=== PATIENT | female | born 1965 | race Caucasian/White ===

== ENCOUNTER 2022-01-08 11:31 | Emergency (ER) | payer OTHER ==
[~2022-01-08] VITALS: Ht 157.5 cm; Wt 63.5 kg
--- NOTE | 2022-01-08 11:31 | NUR ---
MONIKA WHEELCHAIR FROM [facility] LOBBY
[2022-01-08 11:34] VITALS: BP 169/90
[2022-01-08] MEDS ORDERED: ALBUTEROL SULFATE/IPRATROPIU 3 ML SOL IH ONE (11:45)
[2022-01-08] MEDS ORDERED: ALBUTEROL 0.083% 2.5 MG/3 ML NEBU INH ONE (11:45)
[2022-01-08] MEDS ORDERED: predniSONE 20 MG TAB PO ONE (11:45)
--- NOTE | 2022-01-08 11:45 | NUR ---
Pt brought to bed 12 with SOB and active anxiety attack. RT called to bedside and pt placed on monitor at this time. Pt AOX4, GCS15, speaking in full sentences. Hx of asthma.
--- NOTE | 2022-01-08 12:30 | NUR ---
56 y/o female bib for anxiety attack and asthma exacerbation. RT called to bedside and assessed. Pt able to soeak in full sentences and remains AOX4, able to make needs known and GCS15. Pt endorses severe anxiety and has not been taking her asthma medications PmHx: asthma/Anxiety
[2022-01-08] MEDS ORDERED: ALBU0.0912 INH (14:04)
[2022-01-08] MEDS ORDERED: PRED20TA5 PO (14:04)
[2022-01-08 14:07] VITALS: BP 145/75
--- NOTE | 2022-01-08 14:07 | NUR ---
Patient discharged with v/s stable. Written and verbal after care instructions given and explained with teachback. Patient alert, oriented and verbalized understanding of instructions. Ambulatory with steady gait. All questions addressed prior to discharge. ID band removed. Patient advised to follow up with PMD. Rx of prednisone/albuterol given. Patient educated on indication of medication including possible reaction and side effects. Opportunity to ask questions provided and answered.
== END 2022-01-08 14:07 | disposition home or self-care (01) ==
LOC: MED 11:31
DX: J45.901 Unspecified asthma with (acute) exacerbation (principal); F17.200 Nicotine dependence, unspecified, uncomplicated
CPT/HCPCS: 94640; 94760; 99283; J7512; J7613

== ENCOUNTER 2022-04-15 15:04 | Emergency (ER) | payer OTHER ==
[~2022-04-15] VITALS: Ht 162.6 cm; Wt 74.4 kg
[~2022-04-15 15:04] MED LIST: ALBU0.0912 INH; PRED20TA5 PO
[2022-04-15 15:11] VITALS: BP 130/57
--- NOTE | 2022-04-15 15:15 | NUR ---
PT W/C ASSISTED TO BED 4.
[2022-04-15] MEDS ORDERED: ALBUTEROL SULFATE/IPRATROPIU 3 ML SOL IH ONE (15:20)
[2022-04-15] MEDS ORDERED: predniSONE 20 MG TAB PO ONE (15:20)
--- NOTE | 2022-04-15 15:23 | NUR ---
at bs, pt sob, o2 sat 91% ra, awaits rt
[2022-04-15] MEDS ORDERED: PRED20TA5 PO (16:26)
[2022-04-15] MEDS ORDERED: ALBU0.0912 IH (16:26)
--- NOTE | 2022-04-15 16:30 | NUR ---
feels better about sob, o2 sat 97% ra, sr up times 2
[2022-04-15] MEDS ORDERED: NAPR-54 PO (16:33)
[2022-04-15 16:41] VITALS: BP 136/87
--- NOTE | 2022-04-15 16:43 | NUR ---
dPatient discharged with v/s stable. Written and verbal after care instructions given and explained. Patient verbalized understanding. Ambulatory with steady gait. All questions addressed prior to discharge. Advised to follow up with PMD.
== END 2022-04-15 16:43 | disposition home or self-care (01) ==
LOC: MED 15:04
DX: J45.901 Unspecified asthma with (acute) exacerbation (principal); J44.9 Chronic obstructive pulmonary disease, unspecified; Z88.8 Allergy status to other drugs, medicaments and biological substances
CPT/HCPCS: 71045; 94640; 99283; J7512; Q0092

== ENCOUNTER 2022-05-18 02:57 | Inpatient (IN) | payer OTHER ==
[~2022-05-18] VITALS: Ht 154.9 cm; Wt 74.8 kg
[2022-05-18] VITALS (11 sets, daily range): BP systolic 69–158; BP diastolic 45–107
[~2022-05-18 02:57] MED LIST changes: +ALBU0.0912 IH; +NAPR-54 PO
--- NOTE | 2022-05-18 03:03 | NUR ---
PT TAKEN TO BED 6
--- NOTE | 2022-05-18 03:05 | NUR ---
Dr. Guerra examining patient.
[2022-05-18] MEDS ORDERED: IPRATROPIUM 0.02% 0.5 MG/2.5 ML NEBU INH ONE (03:10)
[2022-05-18] MEDS ORDERED: methylPREDNISolone SS 125 MG in WATER STERILE 2 ML IV ONE ×2 (03:10→03:40)
[2022-05-18] MEDS ORDERED: ALBUTEROL 0.083% 2.5 MG/3 ML NEBU INH ONE ×2 (03:10→04:15)
--- NOTE | 2022-05-18 03:14 | NUR ---
Respiratory Therapist at bedside for respiratory intervention.
[2022-05-18] MEDS ORDERED: LORazepam 2 MG/ML VIAL IVP ONE (03:15)
[2022-05-18 03:24] LABS: BASOPHILS % (AUTO) 0.1 % (0.0-2.0); HEMATOCRIT 43.4 % (36-48); HEMOGLOBIN 14.7 g/dL (12.0-16.0); LYMPHOCYTES # (AUTO) 0.3 K/uL (2.5-16.5); LYMPHOCYTES % (AUTO) 2.8 % (20.5-51.1); MEAN CORPUSCULAR HEMOGLOBIN 34 pg (27-31); MEAN CORPUSCULAR HGB CONC 34 g/dL (33-37); MEAN CORPUSCULAR VOLUME 99.3 fL (80-94); MONOCYTES # (AUTO) 0.9 K/uL (0.8-1.0); MONOCYTES % (AUTO) 7.7 % (1.7-9.3); NEUTROPHILS # (AUTO) 10.4 K/uL (1.8-7.7); NEUTROPHILS % (AUTO) 89.4 % (42.2-75.2); PLATELET COUNT (AUTO) 205 K/uL (140-450); RED BLOOD CELL COUNT(AUTO) 4.37 MIL/uL (4.20-5.40); RED CELL DISTRIBUTION WIDTH 14.7 % (11.6-13.7); WHITE BLOOD COUNT (AUTO) 11.7 K/uL (4.8-10.8)
--- NOTE | 2022-05-18 03:30 | NUR ---
57 Y/O F presents with SOB and chest pressure. pt denies any pain at the moment. pt stated "i cant breathe" pt has a history of smoking. pt is A&Ox4, skin intact. pt stated she was seen at [facility] for the same thing xyesterday. PMH- allergies-azithromycin
[2022-05-18 03:41] LABS: ALBUMIN 3.8 g/dL (3.4-5.0); ANION GAP 10.5 (8-16); ASPARTATE AMINOTRANSFERASE 79 U/L (15-37); CARBON DIOXIDE 32.9 mmol/L (21-32); CHLORIDE 96 mmol/L (98-107); GFR ARICAN-AMERICAN 73 mL/min (>90); GLUCOSE 174 mg/dL (74-106); POTASSIUM 4.4 mmol/L (3.5-5.1); SODIUM SERUM 135 mmol/L (136-145); UREA NITROGEN, BLOOD 35 mg/dL (7-18)
[2022-05-18] MEDS ORDERED: methylPREDNISolone SS 125 MG in WATER STERILE 2 ML IM ONE (03:50)
[2022-05-18] MEDS ORDERED: WATER STERILE 10 ML MC ONE (03:57)
[2022-05-18] MEDS ORDERED: methylPREDNISolone SS 125 MG/2 ML VIAL ONE ×2 (03:57→18:23)
[2022-05-18] MEDS ORDERED: MORPHINE SULFATE 2 MG/ML SYR IVP PRN (06:05)
[2022-05-18] MEDS ORDERED: MAG SULF 2000 MG/WATER PREMIX 50 ML IV PRN (06:05)
[2022-05-18] MEDS ORDERED: ZOLPIDEM 10 MG TAB PO PRN (06:05)
[2022-05-18] MEDS ORDERED: ONDANSETRON 4 MG/2 ML VIAL IVP PRN (06:05)
[2022-05-18] MEDS ORDERED: DOCUSATE SODIUM 100 MG GELCAP PO PRN (06:05)
[2022-05-18] MEDS ORDERED: POTASSIUM CHLORIDE 10 MEQ TABER PO PRN (06:05)
[2022-05-18] MEDS ORDERED: ACETAMINOPHEN EXTRA STRENGTH 500 MG TAB PO STA (06:56)
--- NOTE | 2022-05-18 07:35 | NUR ---
PATIENT CURRENTLY TRANSFERRING TO [facility] TO ATTEMPT HHN THERAPY AT A LATER TIME
--- NOTE | 2022-05-18 07:36 | NUR ---
Pt report given to LANI MANDEL. Transfer of care at this time.
--- NOTE | 2022-05-18 07:48 | NUR ---
Patient will be admitted to care of MD JOHNSON. Admited to TELE. Will go to room 119A. Belongings list completed. Report to GILBERT STOREY .
--- NOTE | 2022-05-18 07:48 | NUR ---
The patient's care was reviewed and supervised by Marino Chino RN.
[2022-05-18] MEDS: ALBUTEROL 0.083% 2.5 MG/3 ML NEBU INH SCH ×5 (08:14→23:07)
[2022-05-18] MEDS: ACETAMINOPHEN 325 MG TAB PO PRN (08:39)
--- NOTE | 2022-05-18 09:07 | NUR ---
PATIENT HAS BEEN SCREENED AND CATEGORIZED MODERATE NUTRITION RISK. PATIENT WILL BE SEEN WITHIN 3-5 DAYS OF ADMISSION. REVIEWED BY EDELMIRA VELAZQUEZ RD
[2022-05-18] MEDS: LORazepam 2 MG/ML VIAL IVP PRN ×3 (09:26→20:24)
[2022-05-18] MEDS ORDERED: methylPREDNISolone SS 40 MG in WATER STERILE 1 ML IV SCH (13:00)
[2022-05-18] MEDS: methylPREDNISolone SS 40 MG/ML VIAL IVP SCH ×2 (13:06→20:24)
--- NOTE | 2022-05-18 14:15 | NUR ---
DUE TO INCREASED PULMONARY DISTRESS STAT ABG DRAWN AT THIS TIME BRENDI/CHARGE MST RN NOTIFIED
--- NOTE | 2022-05-18 14:30 | NUR ---
DR. TERRI MORALEZ NOTIFIED OF STAT ABG RESULTS VORBO: BIPAP TO MASK; ADVISED FOREMENTIONED MD OF PATIENT CONFUSION AND REFUSAL TO WEAR BIPAP TO MASK JETT/MST CHARGE NURSE NOTIFIED
--- NOTE | 2022-05-18 14:35 | NUR ---
PATIENT REFUSING BIPAP TO MASK AT THIS TIME JETT/[facility] HVAC TECHNICIAN NOTIFIED
[2022-05-18] MEDS ORDERED: HALOPERIDOL IM 5 MG/ML VIAL IM SCH (14:41)
[2022-05-18] MEDS ORDERED: HALOPERIDOL IM 5 MG/ML VIAL ONE (14:44)
--- NOTE | 2022-05-18 15:03 | NUR ---
PLACED ON A VAPOTHERM AT THIS TIME; SEDATION GIVEN BY RN DUE COMBATIVENESS; EXTERNAL AND INTERNAL SUCTION FOR COPIOUS FROTH YELLOW SECRETIONS
--- NOTE | 2022-05-18 15:17 | NUR ---
PATIENT BECAME EXTREMELY ANXIOUS SHORT OF BREATH WITH SOME DIFFICULTY BREATHING. MEDICATED WITH ATIVAN, RT AT BEDSIDE ATTEMPTED TO PLACE BIPAP ON PATIENT BUT SHE REFUSED AND BECAME COMBATIVE. CHARGE NURSE UPDATED MD ON PATIENT STATUS, ORDERS RECEIVED, PATIENT WILL BE TRANSFERRED TO ICU . PATIENT CURRENTLY PLACED ON HI FLOW AT 40LITERS, FIO2 50% TEMP 33. WILL CONTINUE TO MONITOR CLOSELY.
--- NOTE | 2022-05-18 15:57 | NUR ---
[facility] CALLED AT THIS TIME; Yunier CORNELL RCP AND Bob VILLAGOMEZ RCP ATTENDING
[2022-05-18] MEDS ORDERED: KETAMINE 500 MG/5 ML VIAL ONE (16:22)
[2022-05-18] MEDS ORDERED: DEXMEDETOMIDINE HCL 400 MCG in DEXTROSE 5% 96 ML IV PRN (16:40)
--- NOTE | 2022-05-18 16:59 | NUR ---
PT ARRIVED TO ICU BED 6 ON NONREBREATHER, PLACED ON BIPAP SHORTLY AFTER.
--- NOTE | 2022-05-18 17:02 | NUR ---
NOTIFIED MD DR. MORALEZ OF LABORED BREATHING ON BIPAP. UPDATED ON PT STATUS.
--- NOTE | 2022-05-18 17:45 | NUR ---
AT THE BEDSIDE AND ASSESSED THE PATIENT. PER DR. YU NO NEED FOR PATIENT TO BE INTUBATED AND WILL ORDER BREATHING TREATMENT. WILL CONTINUE TO MONITOR.
[2022-05-18] MEDS ORDERED: ALBUTEROL 0.083% 2.5 MG/3 ML NEBU INH SCH (17:50)
[2022-05-18] MEDS ORDERED: NOREPINEPHRINE 4 MG in DEXTROSE 5% 250 ML IV PRN (18:20)
[2022-05-18] MEDS ORDERED: methylPREDNISolone SS 125 MG/2 ML VIAL IVP ONE (18:25)
--- NOTE | 2022-05-18 19:29 | NUR ---
RECEIVED REPORT FROM AM SHIFT. PATIENT WAS SEEN AND ASSESSED. PATIENT IS ON SPONTANEOUS TIME MODE ON BiPAP. PATIENT IS ON BiPAP SETTINGS: IPAP 18, EPAP 7, BACK UP RR 16, FiO2 40%. SPO2 97%. NOTICED ADEQUATE BILATERAL CHEST RISE AND FALL. MACHINE PLUGGED IN RED OUTLET. BiPAP ALARMS SET APPROPRIATELY AND AUDIBLE TO ENVIRONMENT. AMBU BAG AT BEDSIDE. PATIENT IS IN NO RESPIRATORY DISTRESS AT THIS TIME. BILATERAL BREATH SOUNDS ON AUSCULTATION; UPPER LOBES: WHEEZING LOWER LOBES: WHEEZING HHN TX GIVEN ORDERED AND PATIENT TOLERATED TX WELL WITH NO ADVERSE REACTION. WILL CONTINUE TO MONITOR PATIENT.
--- NOTE | 2022-05-18 20:00 | NUR ---
RECEIVED PT ON BED ON BIPAP, DROWSY TO LETHARGIC, WITH OOACIONAL EPISODES OF AGITATION AND RESTLESSNESS. ASSESSMENT DONE. SAFETY AND FALL PRECAUTION MAINTAINED. REPOSITIONED COMFORTABLY, SUPPORTED WITH PILLOWS. KEPT CLEAN AND DRY. SR. CONT TO YADIEL,
--- NOTE | 2022-05-18 20:00 | NUR ---
PT STILL AGITATED, REMOVED BiPAP MASK OFF. PLACED BiPAP MASK BACK ON PT. PT TOLERATING WELL AT THIS TIME. RN AT BEDSIDE
--- NOTE | 2022-05-18 20:22 | NUR ---
CRITICAL ABG RESULTS WERE REPORTED TO DR. MORALEZ AND UPDATED ON PT CONDITION. INTUBATION ORDER OBTAINED. DR. YU (ED DOCTOR) WAS NOTIFIED AND AGREED TO INTUBATE PT.
[2022-05-18] MEDS ORDERED: KETAMINE 500 MG/5 ML VIAL IVP ONE (20:25)
[2022-05-18] MEDS ORDERED: SUCCINYLCHOLINE CHLORIDE 200 MG/10 ML VIAL IVP ONE (20:25)
--- NOTE | 2022-05-18 20:30 | NUR ---
DR YU AT BEDSIDE, PATIENT WAS SUCCESSFULLY INTUBATED AT 2036 WITH ETT SIZE 8.0 AND SECURED WITH BITTING BLOCK ANCHOR-FAST 24cm @GUM. BILATERAL BREATH SOUNDS ON AUSCULTATION. COLOR CHANGE IN COLORIMETRIC CO2. STAT X RAY ORDERED FOR OFFICIAL ETT PLACEMENT.
--- NOTE | 2022-05-18 20:30 | NUR ---
ABG DONE BY THE RT AND RESULT WAS SHOWN TO ER MD DR. SMALL, DECIDED TO INTUBATE THE PATIENT; DR. MORALEZ WAS ALSO INFORMED OF ABG RESULT, ORDERED TO INTUBATE THE PATIENT.
[2022-05-18] MEDS: PROPOFOL 1000 MG/100 ML PREMIX 100 ML IV PRN (20:35)
--- NOTE | 2022-05-18 20:37 | NUR ---
PATIENT WAS INTUBATED BY DR SMALL( )
[2022-05-18] MEDS ORDERED: VECURONIUM 20 MG in NACL 0.9% 100 ML IV PRN (20:45)
[2022-05-18] MEDS ORDERED: PROPOFOL 1000 MG/100 ML PREMIX 100 ML IV ONE (20:49)
[2022-05-18] MEDS ORDERED: fentaNYL citrate 0.05 MG/ML VIAL ONE (20:50)
[2022-05-18] MEDS ORDERED: VECURONIUM 10 MG VIAL IVP ONE (20:54)
--- NOTE | 2022-05-18 21:00 | NUR ---
NGT INSERTED TO LEFT NARES; LEIVA CATH INSERTED.
[2022-05-18] MEDS ORDERED: NOREPINEPHRINE 4 MG/4 ML VIAL IV ONE (21:33)
--- NOTE | 2022-05-18 21:45 | NUR ---
CENTRAL LINE TO LEFT SUBCLAVIAN WAS INSERTED BY THE ER , DR. SMALL AT BEDSIDE.
--- NOTE | 2022-05-18 22:00 | NUR ---
PT NOW INTUBATED, CXR DONE FOR PLACEMENT VERIFICATION. CENTRAL LINE INSERTED BY SAME MD TO LEFT SUBCLAVIAN 3 LUMEN. STARTED ON FENTANYL AND VECURONIUM DRIPS PER PROTOCOL. DREW SOFT WRIST RESTRAINTS IN PLACE. POST ABG DONE, RESULT REPORTED TO MD, FIO2 CHANGED TO 40%. CHARGE NURSE CALLED AND UPDATED PT'S SPOUSE JORDAN. SAFETY MEASURES OBSERVED. CONT TO MONITOR.
--- NOTE | 2022-05-18 22:03 | NUR ---
PATIENT'S JORDANMagdalena WELLSChau WAS UPDATED ON PATIENT' MEDICAL CONDITION.
--- NOTE | 2022-05-18 22:39 | NUR ---
REPORTED POST INTUBATION ABG RESULTS TO DR. MORALEZ. NO CHANGES AT THIS TIME. TITRATED FiO2. OBTAINED AN ORDER FOR AM ABG.
[2022-05-19] VITALS (26 sets, daily range): BP systolic 90–176; BP diastolic 53–83
[2022-05-19] MEDS ORDERED: VECURONIUM 10 MG VIAL IVP ONE ×2 (01:39→07:52)
[2022-05-19] MEDS: PROPOFOL 1000 MG/100 ML PREMIX 100 ML IV PRN ×5 (03:02→21:36)
[2022-05-19] MEDS: ALBUTEROL 0.083% 2.5 MG/3 ML NEBU INH SCH ×6 (03:52→22:45)
[2022-05-19] MEDS: methylPREDNISolone SS 40 MG/ML VIAL IVP SCH (05:45)
[2022-05-19 06:02] LABS: BASOPHILS % (AUTO) 0.5 % (0.0-2.0); HEMATOCRIT 37.9 % (36-48); HEMOGLOBIN 13.1 g/dL (12.0-16.0); LYMPHOCYTES # (AUTO) 0.2 K/uL (2.5-16.5); LYMPHOCYTES % (AUTO) 2.3 % (20.5-51.1); MEAN CORPUSCULAR HEMOGLOBIN 34 pg (27-31); MEAN CORPUSCULAR HGB CONC 35 g/dL (33-37); MEAN CORPUSCULAR VOLUME 97.3 fL (80-94); MONOCYTES # (AUTO) 0.4 K/uL (0.8-1.0); MONOCYTES % (AUTO) 5.6 % (1.7-9.3); NEUTROPHILS # (AUTO) 6.7 K/uL (1.8-7.7); NEUTROPHILS % (AUTO) 91.6 % (42.2-75.2); PLATELET COUNT (AUTO) 169 K/uL (140-450); RED CELL DISTRIBUTION WIDTH 14.3 % (11.6-13.7); WHITE BLOOD COUNT (AUTO) 7.3 K/uL (4.8-10.8)
[2022-05-19 06:31] LABS: ANION GAP 4.8 (8-16); CARBON DIOXIDE 38.4 mmol/L (21-32); CREATININE 0.7 mg/dL (0.6-1.3); POTASSIUM 4.2 mmol/L (3.5-5.1)
--- NOTE | 2022-05-19 07:30 | NUR ---
REPORT GIVEN TO AM RECEIVING RALEIGH OSORIO. GEN CONDITION CRITICAL./
[2022-05-19] MEDS: IPRATROPIUM 0.02% 0.5 MG/2.5 ML NEBU INH SCH ×5 (08:05→22:45)
--- NOTE | 2022-05-19 08:09 | NUR ---
REPORT RECEIVED. PATIENT WAS AGITATED EVIDENCED BY BP 210, 137 AND EYES WIDE OPEN AND TREMBLING. BUT I TITRATED THE PROPOFOL UP AND THE FENTANYL AND THE PATIENT BECAME CALM AND BP WENT DOWN TO 127/80 AND CLOSED EYES COMFORTABLY. WILL HOLD VEC DRIP UNIL DR CRISOSTOMO COMES BY TO ASSESS. I INFORMED HIM VIA TEXT THAT THE PATIENT MIGHT NOT NEED PARALYTICS ANYMORE. WILL RESTART PROTOCOL IF HE FINDS IN NECESSARY
--- NOTE | 2022-05-19 09:00 | NUR ---
PER DR. MORALEZ, PT RATE ON VENT WAS TITRATED DOWN TO 20. PATIENT IS NO LONGER BREATH STACK AND IN SYNCH WITH VENTILATOR
--- NOTE | 2022-05-19 10:05 | NUR ---
PER MARCOS BARNETT, VECORONIUM HELD DUE TO PATIENT BEING ADEQUATELY SEDATED
[2022-05-19] MEDS: methylPREDNISolone SS 125 MG/2 ML VIAL IVP SCH ×3 (12:05→23:55)
--- NOTE | 2022-05-19 16:16 | NUR ---
DC PLANNING ASSESSMENT COMPLETE PLEASE REFER TO ASSESSMENT FOR ADDITIONAL DETAILS PT IS A 57 YR OLD FEMALE ADMITTED TO [facility] FROM HOME WITH DX OF ASTHMA EXACERBATION. PT HAS PAST MEDICAL HX OF ASTHMA, COPD, AND SMOKING. PT IS REPORTED TO UTILIZE WC NEEDED, HOWEVER REPORTS PT IS TYPICALLY AMBULATORY. JORDAN REPORTS PT RECENTLY BEGAN REQUIRING ASSISTANCE WITH [employer] THAT AND SON AID WITH. PT IS REPORTED TO MEET WITH PSYCHIATRIST 1X MONTHLY FOR MANAGEMENT OF ANXIETY SX'S. JORDAN REPORTS TENTATIVE DC PLAN IS FOR PT TO RETURN HOME WITH FAMILY PROVIDING TRANSPORTATION, WHEN MEDICALLY STABLE. Addendum: 05/19/22 at 1618 by Karen YOST Amended: Links added.
--- NOTE | 2022-05-19 19:30 | NUR ---
ASSUMED CARE OF THIS PATIENT AND ASSESSMENT DONE AND COMPLETED.SEDATED ON PROPOFOL 50MCG AND FENTANYL 1MCG.ASYMPTOMATIC OF ANY PAIN AND DISCOMFORT AT THIS TIME.SR/ST ON THE MONITOR.AFEBRILE.ON VENTILATOR WITH SETTINGS ACPC 20 45% PEEP 5.LUNG SOUNDS WITH RHONCHI THROUGHOUT.ABDOMEN OBESE WITH +BS X4 QUADS.ALL PULSES PRESENT AND PALPLABLE LEFT SUBCLAVIAN PATENT AND INTACT AND BENIGN.LEIVA IN PLACE AND DRAINING ADEQUATE AMOUNT OF URINE.WILL CONTINUE BOBBY PROCEED WITH CARE.
--- NOTE | 2022-05-19 20:38 | NUR ---
1928 INLINE HHNTX GIVEN. SXNED PT. LARGE AMTS OF COPIOUS PINK FROTHY SECRETIONS
[2022-05-19] MEDS ORDERED: fentaNYL citrate 0.05 MG/ML VIAL ONE (22:59)
[2022-05-19] MEDS: fentaNYL citrate 1 MG in NACL 0.9% 80 ML IV PRN (23:49)
[2022-05-20] VITALS (27 sets, daily range): BP systolic 92–160; BP diastolic 1–98
[2022-05-20] MEDS: PROPOFOL 1000 MG/100 ML PREMIX 100 ML IV PRN ×6 (01:19→22:15)
[2022-05-20] MEDS: ALBUTEROL 0.083% 2.5 MG/3 ML NEBU INH SCH ×6 (03:07→23:02)
[2022-05-20] MEDS: IPRATROPIUM 0.02% 0.5 MG/2.5 ML NEBU INH SCH ×6 (03:07→23:02)
[2022-05-20] MEDS: methylPREDNISolone SS 125 MG/2 ML VIAL IVP SCH ×3 (05:15→17:24)
--- NOTE | 2022-05-20 07:00 | NUR ---
REPORT GIVEN TO RUTH CACERES RN ,FOR CONTINUITY OF CARE.
[2022-05-20 07:17] LABS: HEMATOCRIT 38.9 % (36-48); MEAN CORPUSCULAR HEMOGLOBIN 34 pg (27-31); MEAN CORPUSCULAR HGB CONC 34 g/dL (33-37); MEAN CORPUSCULAR VOLUME 100.4 fL (80-94); PLATELET COUNT (AUTO) 210 K/uL (140-450); RED BLOOD CELL COUNT(AUTO) 3.88 MIL/uL (4.20-5.40); RED CELL DISTRIBUTION WIDTH 14.9 % (11.6-13.7); WHITE BLOOD COUNT (AUTO) 9.8 K/uL (4.8-10.8)
--- NOTE | 2022-05-20 07:30 | NUR ---
Received pt sedated. ETT to vent settings AC PC FiO2@45%, rate 20 PEEP 5. Sinus tachy on the monitor. OG-tube intact and clamped. Dumas catheter intact and draining to gravity. Central line on left subclavian intact and infusing Propofol@50mcg/kg/min, Fentanyl@1mcg/kg/hr, and levophed@2mcg/min. Peripheral IV on right forearm 22 gauge intact and saline flushed. Bilat soft wrist restraints in place with no signs of injury. Safety precautions in place.
[2022-05-20 07:41] LABS: ANION GAP 8.5 (8-16); CREATININE 0.7 mg/dL (0.6-1.3); POTASSIUM 4.5 mmol/L (3.5-5.1)
[2022-05-20] MEDS: ENOXAPARIN 40 MG/0.4 ML SYR SUBQ SCH (08:13)
[2022-05-20 08:37] LABS: LYMPHOCYTES % (MANUAL) 3 % (20-46); MONOCYTES % (MANUAL) 9 % (5-12)
--- NOTE | 2022-05-20 09:40 | NUR ---
Seen and examined by Dr. Mercer. New order for tube feeding per RD recommendation.
--- NOTE | 2022-05-20 11:10 | NUR ---
SCREEN FOR LOW CARLINE SCALE AT RISK, CONTINUE TO FOLLOW PRESSURE ULCER PREVENTION INTERVENTIONS. -TURN AND REPOSITION PATIENT Q 2H, ASSIST IF NEEDED -ASSESS AND MONITOR SKIN CONDITION DURING POSITION CHANGES -OFFLOAD BILATERAL HEELS BY PLACING PILLOWS UNDER CALVES AT ALL TIMES, UNLESS OTHERWISE CONTRAINDICATED -PRESSURE REDISTRIBUTION BY PLACING PILLOWS AND OFFLOADING SACRALCOCCYX -KEEP SKIN CLEAN AND DRY AT ALL TIMES.
[2022-05-20] MEDS: fentaNYL citrate 1 MG in NACL 0.9% 80 ML IV PRN (14:56)
--- NOTE | 2022-05-20 15:00 | NUR ---
Called RD with no answer. Left voice message .
[2022-05-20] MEDS ORDERED: DOCUSATE 100 MG/10 ML UDC GT PRN (15:55)
--- NOTE | 2022-05-20 19:21 | NUR ---
Endorsed to network professional nurse [facility] for continuity of care.
[2022-05-20] MEDS ORDERED: fentaNYL citrate 0.05 MG/ML VIAL ONE (21:38)
[2022-05-21] VITALS (20 sets, daily range): BP systolic 95–152; BP diastolic 65–93
[2022-05-21] MEDS: fentaNYL citrate 1 MG in NACL 0.9% 80 ML IV PRN (00:37)
[2022-05-21] MEDS: methylPREDNISolone SS 125 MG/2 ML VIAL IVP SCH ×4 (00:39→17:55)
[2022-05-21] MEDS: PROPOFOL 1000 MG/100 ML PREMIX 100 ML IV PRN ×6 (03:12→22:04)
[2022-05-21] MEDS: IPRATROPIUM 0.02% 0.5 MG/2.5 ML NEBU INH SCH ×6 (03:53→22:14)
[2022-05-21] MEDS: ALBUTEROL 0.083% 2.5 MG/3 ML NEBU INH SCH ×6 (03:54→22:14)
[2022-05-21 06:06] LABS: HEMATOCRIT 39.2 % (36-48); HEMOGLOBIN 13.3 g/dL (12.0-16.0); MEAN CORPUSCULAR HEMOGLOBIN 34 pg (27-31); MEAN CORPUSCULAR HGB CONC 34 g/dL (33-37); MEAN CORPUSCULAR VOLUME 100.5 fL (80-94); PLATELET COUNT (AUTO) 173 K/uL (140-450); RED CELL DISTRIBUTION WIDTH 14.6 % (11.6-13.7); WHITE BLOOD COUNT (AUTO) 7.3 K/uL (4.8-10.8)
[2022-05-21 06:17] LABS: ANION GAP 7.5 (8-16); CARBON DIOXIDE 38.1 mmol/L (21-32); CREATININE 0.7 mg/dL (0.6-1.3); POTASSIUM 4.6 mmol/L (3.5-5.1)
[2022-05-21 07:10] LABS: BASOPHILS % (MANUAL) 0 % (0-2); EOSINOPHILS % (MANUAL) 0 % (0-4); LYMPHOCYTES % (MANUAL) 6 % (20-46); MONOCYTES % (MANUAL) 12 % (5-12)
[2022-05-21] MEDS: ENOXAPARIN 40 MG/0.4 ML SYR SUBQ SCH (08:39)
--- NOTE | 2022-05-21 09:37 | NUR ---
PATIENT HAS BEEN RE-SCREENED AND CATEGORIZED HIGH NUTRITION RISK. PATIENT WILL BE SEEN WITHIN 1-2 DAYS OF REFERRAL RECEIVED. 05/20/22-05/22/[address] REFERRAL RECEIVED FOR TUBE FEEDING CONSULT.
[2022-05-21] MEDS: fentaNYL citrate - 50mL vial 2.5 MG in NACL 0.9% 200 ML IV PRN (09:56)
--- NOTE | 2022-05-21 14:36 | NUR ---
05/21/22 RD INITIAL ASSESSMENT COMPLETED.PLEASE REFER TO NUTRITION ASSESSMENT UNDER CARE ACTIVITY FOR ESTIMATED NUTRITIONAL NEEDS. 1. CONTINUE VITAL AF 1.2 YANELIS @ 20ML/HR, FWF 100 ML Q4H. -IF PROPOFOL IS DISCONTINUED, RECOMMEND INCREASING VITAL AF 1.2 YANELIS RATE TO 45 ML/HR TO MEET NUTRITIONAL NEEDS. 2. MONITOR GI SYMPTOMS 3. RD TO FOLLOW-UP 2-3 DAYS, HIGH RISK GILMER ANTONY RD
[2022-05-22] VITALS (28 sets, daily range): BP systolic 91–156; BP diastolic 62–101
[2022-05-22] MEDS: ALBUTEROL 0.083% 2.5 MG/3 ML NEBU INH SCH ×6 (01:10→23:15)
[2022-05-22] MEDS: IPRATROPIUM 0.02% 0.5 MG/2.5 ML NEBU INH SCH ×6 (01:10→23:15)
[2022-05-22] MEDS: methylPREDNISolone SS 125 MG/2 ML VIAL IVP SCH ×2 (01:18→05:14)
[2022-05-22] MEDS ORDERED: fentaNYL citrate 0.05 MG/ML VIAL ONE (01:48)
[2022-05-22] MEDS: fentaNYL citrate - 50mL vial 2.5 MG in NACL 0.9% 200 ML IV PRN ×2 (02:00→09:00)
[2022-05-22] MEDS: PROPOFOL 1000 MG/100 ML PREMIX 100 ML IV PRN ×5 (02:02→18:35)
[2022-05-22 05:46] LABS: BASOPHILS % (AUTO) 0.1 % (0.0-2.0); HEMATOCRIT 34.8 % (36-48); HEMOGLOBIN 11.9 g/dL (12.0-16.0); LYMPHOCYTES # (AUTO) 0.3 K/uL (2.5-16.5); MEAN CORPUSCULAR HEMOGLOBIN 34 pg (27-31); MEAN CORPUSCULAR HGB CONC 34 g/dL (33-37); MEAN CORPUSCULAR VOLUME 99.5 fL (80-94); MONOCYTES # (AUTO) 0.6 K/uL (0.8-1.0); MONOCYTES % (AUTO) 6.7 % (1.7-9.3); NEUTROPHILS # (AUTO) 7.7 K/uL (1.8-7.7); NEUTROPHILS % (AUTO) 90.2 % (42.2-75.2); PLATELET COUNT (AUTO) 163 K/uL (140-450); WHITE BLOOD COUNT (AUTO) 8.5 K/uL (4.8-10.8)
[2022-05-22 06:29] LABS: ANION GAP 12.4 (8-16); CARBON DIOXIDE 32.6 mmol/L (21-32); CREATININE 0.6 mg/dL (0.6-1.3)
--- NOTE | 2022-05-22 08:18 | NUR ---
ROUNDED ON PT. PT IS AWAKE WITH A VENT SETTINGS OF PC 30 RR 14 TINSP 0.9 24% +5. NO DISTRESS NOTED. VENT PLUGGED INTO RED OUTLET AND AMBU BAG AT BEDSIDE. TX GIVEN. COURSE BREATHE SOUNDS HEARD BILATERALLY WHEN SXNED MINIMAL SECRETION COLLECTED. WILL CONTINUE TO MONITOR.
[2022-05-22] MEDS: ENOXAPARIN 40 MG/0.4 ML SYR SUBQ SCH (09:06)
--- NOTE | 2022-05-22 09:30 | NUR ---
Pt. on bed sedated on Propofol and Fentanyl Drips. Fracisco. SWR in place to prevent extubation. SR to ST on the monitor. On vent via ETT with settings as follows AC PC Rate=14 Pressure=3 PEEP (+)5 FiO2=24% with B8Shj=16 to 99%. ABG done; Dr. Mercer paged x 1 by RT with no response @ this time. Tolerated Vital @ 20 ml/hr with no residuals @ this time. Due meds. adm. Cardiac and resp. monitoring cont. Will cont. to monitoe.
--- NOTE | 2022-05-22 09:50 | NUR ---
RECEIVED BEDSIDE REPORT FROM SALES INSPECTOR RN, JUNE, FOR CONTINUITY OF CARE. PT AWAKE AND FOLLOWS COMMANDS. ETT TO VENT. SR ON MONITOR, TLC TO L SUBCLAVIAN INFUSING PROPOFOL AT 60 MCG/KG/MIN, FENTANYL AT 2 MCG/KG/HR, NS TKO. OGT TO TUBE FEEDING 20ML/HR WITH FWF 100ML Q4H. BILATERAL SOFT WRIST RESTRAINTS IN PLACE FOR SAFETY, NO S/SX OF INJURY. STANDARD PRECAUTION. HOB 30 DEGREES, BED LOCKED AND IN LOWEST POSITION.
--- NOTE | 2022-05-22 10:34 | NUR ---
SEEN AND EXAMINED BY DR. MORALEZ. ORDERS TO RESTART PRECEDEX AND WEAN PROPOFOL AND FENTANYL. ATTEMPT CPAP TRIALS LATER. DISCUSSED WITH RT AT BEDSIDE.
--- NOTE | 2022-05-22 10:46 | NUR ---
ROUNDED WITH KIRT ON THIS PT NEW ORDERS TO START CPAP TRIALS ON PT. AURELIAR ALSO DECREASED THE PINSP TO 20 FROM PINSP 30. PT TOELRATING CHANGES WELL RN AWARE. NO DISTRESS NOTED.
[2022-05-22] MEDS: DEXMEDETOMIDINE HCL 400 MCG in DEXTROSE 5% 96 ML IV PRN ×2 (11:43→18:25)
[2022-05-22] MEDS: methylPREDNISolone SS 40 MG/ML VIAL IVP SCH ×2 (12:33→20:32)
[2022-05-22] MEDS ORDERED: fentaNYL citrate 1 MG in NACL 0.9% 80 ML IV PRN (13:30)
[2022-05-22] MEDS ORDERED: fentaNYL citrate - 50mL vial 2.5 MG in NACL 0.9% 200 ML IV PRN (13:45)
--- NOTE | 2022-05-22 13:46 | NUR ---
@1335 PT WAS PLACED ON CPAP 12/14 24%. PT IS TOLERATING CPAP WELL. NO RESP DISTRESS NOTED. HR 104 SPO2 96%. RN AWARE OF CPAP STARTED. BACKUP VENT SETTINGS IN PLACE. ALARMS ARE SEYT AND HEARD.
--- NOTE | 2022-05-22 14:20 | NUR ---
pt back up settings came on. let pt rest will try again tomorrow
--- NOTE | 2022-05-22 17:44 | NUR ---
changed ETT Lizbet and shilo
--- NOTE | 2022-05-22 19:30 | NUR ---
ASSUMED CARE OF THIS PATIENT AND ASSESSMENT DONE AND COMPLETED.AFEBRILE.SEDATED ON PROPOFOL 25,MCG,FENTANYL 50 MCG AND PRECEDEX 0.8 MCG.SR ON THE MONITOR HR 84..ON VENT SETTINGS ACPC 14 FIO2 24% PEEP 5 WITH O2 SAT AT 96%.LUNG SOUNDS WITH RHONCHI THROUGHOUT .ABDOMEN OBESE WITH = BS X4 QUADS.LEIVA DRAINING ADEQUATE AMOUNT OF IRINE. ALL PULSES PRESENT AND PALPABLE.WILL PROCEED WITH CONTINUITY OF CARE.
--- NOTE | 2022-05-22 19:35 | NUR ---
ENDORSED BEDSIDE REPORT TO KIM, BEAUTY COUNSELOR RN, FOR CONTINUITY OF CARE.
[2022-05-23] VITALS (20 sets, daily range): BP systolic 90–144; BP diastolic 62–93
[2022-05-23] MEDS: DEXMEDETOMIDINE HCL 400 MCG in DEXTROSE 5% 96 ML IV PRN ×5 (00:22→22:54)
[2022-05-23] MEDS: PROPOFOL 1000 MG/100 ML PREMIX 100 ML IV PRN ×2 (02:16→08:07)
[2022-05-23] MEDS: ALBUTEROL 0.083% 2.5 MG/3 ML NEBU INH SCH ×5 (03:17→22:22)
[2022-05-23] MEDS: IPRATROPIUM 0.02% 0.5 MG/2.5 ML NEBU INH SCH ×5 (03:17→22:22)
--- NOTE | 2022-05-23 03:36 | NUR ---
HOLD TUBE FEEDING BY DR FAY.
--- NOTE | 2022-05-23 03:42 | NUR ---
0317 PATIENT HAS COPIOUS AMOUNTS OF PINK FROTHY SECRETIONS. SXNED AND LAVAGED TO CLEAR SECRETIONS. PATIENTS COLOR DUSKY. AND PATIENT AGONAL BREATHING.INCREASED FIO2 TO 100%. SAT PATIENT UP AND INCREASED PEEP TO 8CM. GAVE INLINE HHNTX.PATIENT HAS BILAT WHEEZING.RN INCREASED PROPOFOL DUE TO PATIENT MOVING AND THRASHING IN BED. PATIENT IMPROVED AFTER DOING THESE CHANGES
--- NOTE | 2022-05-23 04:09 | NUR ---
0317 INCREASED RR TO 20 BPM. AND ITIME TO 1.00
[2022-05-23] MEDS: methylPREDNISolone SS 40 MG/ML VIAL IVP SCH ×3 (04:11→21:17)
[2022-05-23 05:39] LABS: BASOPHILS % (AUTO) 0.2 % (0.0-2.0); HEMATOCRIT 38.5 % (36-48); HEMOGLOBIN 12.8 g/dL (12.0-16.0); LYMPHOCYTES # (AUTO) 0.4 K/uL (2.5-16.5); LYMPHOCYTES % (AUTO) 3.4 % (20.5-51.1); MEAN CORPUSCULAR HEMOGLOBIN 33 pg (27-31); MEAN CORPUSCULAR HGB CONC 33 g/dL (33-37); MONOCYTES # (AUTO) 0.7 K/uL (0.8-1.0); MONOCYTES % (AUTO) 6.1 % (1.7-9.3); NEUTROPHILS # (AUTO) 10.6 K/uL (1.8-7.7); NEUTROPHILS % (AUTO) 90.3 % (42.2-75.2); PLATELET COUNT (AUTO) 152 K/uL (140-450); RED BLOOD CELL COUNT(AUTO) 3.85 MIL/uL (4.20-5.40); RED CELL DISTRIBUTION WIDTH 14.8 % (11.6-13.7); WHITE BLOOD COUNT (AUTO) 11.7 K/uL (4.8-10.8)
--- NOTE | 2022-05-23 05:52 | NUR ---
LOWERED FIO2 TO 50%. WILL CONTINUE TO TITRATE
[2022-05-23 06:02] LABS: CARBON DIOXIDE 32.5 mmol/L (21-32); CREATININE 0.6 mg/dL (0.6-1.3); POTASSIUM 4.5 mmol/L (3.5-5.1)
--- NOTE | 2022-05-23 07:00 | NUR ---
ENDORSED TO DON DAY SHIFT RN FOR CONTINUITY OF CARE.
--- NOTE | 2022-05-23 07:30 | NUR ---
Received report. Patient is resting in bed, eyes closed, arouses to touch, appears comfortable, tolerating mechanical ventilation well. Bilateral soft wrist restraints in place, no sign of injury noted, secured to non-moving part of bed. Patient is sedated to RASS -2 with Propofol, Precedex and Fentanyl gtts. VSS on telemetry, NSR noted. No acute distress noted at present, will continue to monitor patient.
--- NOTE | 2022-05-23 09:02 | NUR ---
RESPONDED TO ICU CALL DUE TO PT SELF EXTUBATION. PT NOT IN ANY RESPIRATORY DISTRESS BUT AGITATED. NURSE IS BEDSIDE. ER PHYSICIAN BEDSIDE ASSESSING PT. NO NEED FOR RE INTUBATION AT THIS TIME.
--- NOTE | 2022-05-23 09:20 | NUR ---
0859 Patient is resting in bed, nods appropriately, bilateral wrist restraints in place, secured to rail. Called to bedside by ENGRAVER SET UP OPERATOR, patient leaned forward and dislodged ETT. NRB 100% placed on patient, SPO2 sats 99%, Propofol anf Fentanyl stopped , Precedex increased to 1.2mcg/kg/hr for sedation. ED MD Oconnell and RT called to bedside to assess. 09 Dr Mercer paged and notified, new orders received. 09 Patient placed on 2LNC , SPO2 96%, VSS. Patient is Honduran speaking, asking for water, no apparent distress noted at present. Bilateral soft wrist restraints changed to mittens, ED MD spoke with Sylvie regarding assessment and patient current status. Will continue to monitor patient.
[2022-05-23] MEDS: ENOXAPARIN 40 MG/0.4 ML SYR SUBQ SCH (09:52)
--- NOTE | 2022-05-23 10:30 | NUR ---
BEDSIDE AWARE OF PT SELF EXTUBATION. PHYSICIAN STATES TO KEEP PT ON 3L NASAL CANNULA. PT NOT IN ANY DISTRESS AT THIS TIME.
[2022-05-23] MEDS ORDERED: HALOPERIDOL IM 5 MG/ML VIAL IM SCH (10:34)
[2022-05-23] MEDS ORDERED: HALOPERIDOL IM 5 MG/ML VIAL IM PRN (10:35)
[2022-05-23] MEDS: LORazepam 2 MG/ML VIAL IVP PRN ×4 (11:29→20:38)
--- NOTE | 2022-05-23 16:37 | NUR ---
PT. NOT APPROPRIATE FOR ST SWALLOW EVALUATION AT THIS TIME. MAY REEVALUATE PT. AT A MORE APPROPRIATE TIME. RN MADE AWARE.
--- NOTE | 2022-05-23 19:10 | NUR ---
Patient is resting in bed, no distress, noted. Bilateral mittens remain in place for safety. Precedex at 1.5mcg/kg/hr. Patient is tolerating 3LNC well. No apparent distress noted. Report given to oncoming RNTabby.
[2022-05-24] VITALS (11 sets, daily range): BP systolic 118–148; BP diastolic 67–90
[2022-05-24] MEDS: LORazepam 2 MG/ML VIAL IVP PRN ×4 (02:12→22:11)
[2022-05-24] MEDS: DEXMEDETOMIDINE HCL 400 MCG in DEXTROSE 5% 96 ML IV PRN ×2 (02:41→06:30)
[2022-05-24] MEDS: IPRATROPIUM 0.02% 0.5 MG/2.5 ML NEBU INH SCH (02:48)
[2022-05-24] MEDS: ALBUTEROL 0.083% 2.5 MG/3 ML NEBU INH SCH (02:48)
[2022-05-24] MEDS: methylPREDNISolone SS 40 MG/ML VIAL IVP SCH ×2 (04:56→20:18)
--- NOTE | 2022-05-24 07:20 | NUR ---
Received report from off going nurse. Patient is resting in bed, no apparent distress noted. Bilateral mittens removed. Patient is arouses to verbal, requires redirection. Precedex gtt at 1.5mcg/kg/hr for sedation. Will continue to monitor.
[2022-05-24] MEDS: ENOXAPARIN 40 MG/0.4 ML SYR SUBQ SCH (09:50)
[2022-05-24] MEDS: ALBUTEROL SULFATE/IPRATROPIU 3 ML SOL IH SCH ×3 (12:10→19:00)
[2022-05-24 12:25] LABS: ANION GAP 9.2 (8-16); CARBON DIOXIDE 30.6 mmol/L (21-32); CREATININE 0.5 mg/dL (0.6-1.3); POTASSIUM 3.8 mmol/L (3.5-5.1)
[2022-05-24 12:27] LABS: BASOPHILS % (AUTO) 0.1 % (0.0-2.0); HEMATOCRIT 37.4 % (36-48); HEMOGLOBIN 12.8 g/dL (12.0-16.0); LYMPHOCYTES # (AUTO) 0.3 K/uL (2.5-16.5); LYMPHOCYTES % (AUTO) 3.1 % (20.5-51.1); MEAN CORPUSCULAR HEMOGLOBIN 34 pg (27-31); MEAN CORPUSCULAR HGB CONC 34 g/dL (33-37); MONOCYTES # (AUTO) 0.5 K/uL (0.8-1.0); MONOCYTES % (AUTO) 4.5 % (1.7-9.3); NEUTROPHILS # (AUTO) 10.4 K/uL (1.8-7.7); NEUTROPHILS % (AUTO) 92.3 % (42.2-75.2); PLATELET COUNT (AUTO) 143 K/uL (140-450); RED BLOOD CELL COUNT(AUTO) 3.78 MIL/uL (4.20-5.40); RED CELL DISTRIBUTION WIDTH 14.3 % (11.6-13.7); WHITE BLOOD COUNT (AUTO) 11.3 K/uL (4.8-10.8)
--- NOTE | 2022-05-24 13:46 | NUR ---
05/24/22 RD FOLLOW UP COMPLETED PLEASE REFER TO NUTRITION ASSESSMENT UNDER CARE ACTIVITY FOR ESTIMATED NUTRITIONAL NEEDS. 1. CONTINUE NPO, PER MD. 2. IF PT PASSES ST EVAL, RECOMMEND CCHO 60 GRAM DIET, WITH MODIFIED TEXTURE, PER ST. - IF PT DOES NOT PASS ST EVAL, WHEN/IF MEDICALLY APPROPRIATE, AND IF PT BEGINS GTUBE FEEDING, RECOMMEND INCREASING VITAL AF 1.2 YANELIS RATE TO 45 ML/HR, FWF 100 ML Q6H TO MEET NUTRITIONAL NEEDS, WILL PROVIDE 1080 ML VOLUME, 1296 KCALS, 81 G PROTEIN, AND 1275 ML FREE WATER, MEETING 100% ESTIMATED CALORIE/ PROTEIN NEEDS, ADEQUATE 3. MONITOR LAB VALUES. 4. RD TO FOLLOW-UP 2-3 DAYS, HIGH RISK REVIEWED BY EDELMIRA VELAZQUEZ RD
--- NOTE | 2022-05-24 18:01 | NUR ---
PATIENT TRANSFERRED TO [facility] BED SAFELY. WILL CONTINUE TO MONITOR.
--- NOTE | 2022-05-24 19:26 | NUR ---
REPORT GIVEN TO MAINSPRING FORMER ARBOR END NURSE FOR CONTINUITY OF CARE. PATIENT IN STABLE CONDITION.
--- NOTE | 2022-05-24 19:30 | NUR ---
RECEIVED REPORT FROM DAY SHIFT NURSE TISH FOR CONTINUITY OF CARE. PATIENT IS A&O X1-2; VIETNAMESE SPEAKING. PATIENT IS CONFUSED. PATIENT IS ON NC 2L, BREATHING IS NORMAL WITH SYMMETRICAL RISE AND FALL OF CHEST. IV IS A TRIPLE PICC LINE IN THE LEFT SUBCLAVIAN, NO FLUIDS RUNNING (SALINE LOCKED). PATIENT IS AWAKE, LYING SEMI-FOWLERS POSITION. SON IS AT BEDSIDE. BED IS IN LOWEST POSITION, WHEELS LOCKED, CALL LIGHT IN PLACE. WILL CONTINUE TO OBSERVE PATIENT.
--- NOTE | 2022-05-24 22:15 | NUR ---
PATIENT WAS AGITATED; TRYING TO GET OUT OF BED; AND WOULD NOT SETTLE DOWN. HR WAS 128; BP WAS 128/88. ADMINISTERED ATIVAN TO PATIENT TO HELP PATIENT RELAX. PATIENT'S BREATHING IS NORMAL WITH SYMMETRICAL RISE AND FALL OF CHEST. WILL CONTINUE TO OBSERVE PATIENT.
[2022-05-25] VITALS: BP 151/83
--- NOTE | 2022-05-25 01:09 | NUR ---
PATIENT CONTINUES TO TRY TO GET OUT OF BED. PULLS ON CATHETER (NEW STATLOCK WAS PUT ON PATIENT'S LEG; PATIENT BROKE OTHER ONE). PATIENT'S BREATHING IS NORMAL WITH SYMMETRICAL RISE AND FALL OF CHEST. WILL CONTINUE TO OBSERVE PATIENT.
--- NOTE | 2022-05-25 01:15 | NUR ---
PATIENT WAS PUT BACK ON TO RESTRAINTS, TO ENSURE PATIENT SAFETY. PATIENT'S BREATHING IS NORMAL WITH SYMMETRICAL RISE AND FALL OF CHEST. WILL CONTINUE TO OBSERVE PATIENT.
[2022-05-25] MEDS: ALBUTEROL SULFATE/IPRATROPIU 3 ML SOL IH SCH ×7 (03:36→23:56)
--- NOTE | 2022-05-25 03:45 | NUR ---
WHILE CHECKING PATIENT'S CATHETER NOTICED THAT CATHETER TUBE WAS LYING HIRER THAN IT SHOULD ON PATIENT. CHECKED PATIENT'S LEG; PATIENT HAD BROKEN OFF NEW STATLOCK THAT WAS PLACED. REAPPLIED CATHETER TUBE TO PATIENT'S THIGH, SECURING WITH TAPE AND RECHECKED PATIENT'S RESTRAINTS. EDUCATED THE PATIENT ON THE IMPORTANCE OF NOT PULLING ON HER CATHETER. REINFORCEMENT IS NEEDED. WILL CONTINUE TO OBSERVE PATIENT.
--- NOTE | 2022-05-25 03:45 | NUR ---
PATIENT APPEARED TO BE IN PAIN. RESTLESS AND GRIMACING. ASKED PATIENT IF SHE WAS IN PAIN. PATIENT STATED, "SI". CHECKED PATIENT'S BP; BP WAS 161/110. CHECKED PATIENT'S CHART; MORPHINE WAS APPROPRIATE TO ADMINISTER. GAVE PATIENT MORPHINE FOR PAIN. PATIENT TOLERATED WELL. WILL CONTINUE TO OBSERVE PATIENT.
[2022-05-25 04:00] VITALS: BP 142/87
--- NOTE | 2022-05-25 04:20 | NUR ---
OBTAINED PATIENT'S 0400 VITALS; BP WAS 142/87. PATIENT IS STILL SINUS TACH AT 115 HEART RATE. BREATHING IS NORMAL WITH SYMMETRICAL RISE AND FALL OF CHEST. WILL CONTINUE TO OBSERVE PATIENT.
--- NOTE | 2022-05-25 07:29 | NUR ---
ENDORSED TO DAY SHIFT NURSE ANNALEE FOR CONTINUITY OF CARE. PATIENT IS STABLE.
[2022-05-25 08:00] VITALS: BP 138/87
[2022-05-25] MEDS: ENOXAPARIN 40 MG/0.4 ML SYR SUBQ SCH (09:00)
[2022-05-25] MEDS: methylPREDNISolone SS 40 MG/ML VIAL IVP SCH ×2 (09:00→21:17)
[2022-05-25 12:00] VITALS: BP 151/95
--- NOTE | 2022-05-25 12:26 | NUR ---
RECEIVED REPORT FROM IMPREGNATOR HELPER NURSE FOR CONTINUITY OF CARE
[2022-05-25 13:00] LABS: HEMATOCRIT 42.3 % (36-48); HEMOGLOBIN 14.4 g/dL (12.0-16.0); MEAN CORPUSCULAR HEMOGLOBIN 33 pg (27-31); MEAN CORPUSCULAR HGB CONC 34 g/dL (33-37); PLATELET COUNT (AUTO) 162 K/uL (140-450); RED BLOOD CELL COUNT(AUTO) 4.31 MIL/uL (4.20-5.40); RED CELL DISTRIBUTION WIDTH 14.4 % (11.6-13.7); WHITE BLOOD COUNT (AUTO) 12.1 K/uL (4.8-10.8)
[2022-05-25 13:13] LABS: EOSINOPHILS % (MANUAL) 1 % (0-4); LYMPHOCYTES % (MANUAL) 3 % (20-46); MONOCYTES % (MANUAL) 6 % (5-12); MYELOCYTES % 2 % (0-0); PROMYELOCYTES % 1 % (0-0)
[2022-05-25] MEDS: KCL 20 MEQ IN 100 mL PREMIX 200 ML IV PRN (13:55)
[2022-05-25 16:00] VITALS: BP 149/81
--- NOTE | 2022-05-25 19:00 | NUR ---
ASKED PHYSICIAN IF WE COULD RENEW PTS RESTRAINT ORDER AND HE RESPONDED FOR US TO GIVE PT ATIVAN AND REMOVE RESTRAINTS AT THIS TIME.
--- NOTE | 2022-05-25 19:10 | NUR ---
ENDORSED PT TO EQUIPMENT MANAGER NURSE FOR CONTINUITY OF CARE. PT STABLE AT THIS TIME.
--- NOTE | 2022-05-25 19:15 | NUR ---
RECEIVED REPORT FROM DAY SHIFT RN FOR CONTINUITY OF CARE. PT IS CURRENTLY OFF RESTRAINTS. NO RENEWAL ORDERER PER DAY SHIFT RN. WILL MONITOR PT AND REORIENTED PT NEEDED. BY BEDSIDE. PT IS ROMANIAN SPEAKER AND IS CONFUSED. PER THIS IS NOT THE PT BASELINE. PT IS ON 2L NC SATING 94%. PT HAS FC DRAINING TO GRAVITY.
[2022-05-25 20:00] VITALS: BP 145/109
[2022-05-25] MEDS: LORazepam 2 MG/ML VIAL IVP PRN (21:24)
--- NOTE | 2022-05-25 21:25 | NUR ---
PT KEPT ON REMOVING NC AND ATTEMPTING TO REMOVING LINES. PT IS AGITATED. PT WAS GIVEN ATIVAN.
[2022-05-26] VITALS: BP 163/96
--- NOTE | 2022-05-26 00:40 | NUR ---
CHECKED ON PT. PT IS SLEEPING COMFORTABLY IN BED. NOT IN ANY DISTRESS. WILL CONTINUE TO MONITOR THE PT.
--- NOTE | 2022-05-26 02:07 | NUR ---
PT COMPLAINING OF BACK PAIN 08/19. PT ASKED FOR MEDICATION. MORPHINE WAS GIVEN PER MD ORDER. NO OTHER COMPLAINS.
[2022-05-26] MEDS: MORPHINE SULFATE 2 MG/ML SYR IVP PRN ×3 (02:10→18:10)
[2022-05-26] MEDS: ALBUTEROL SULFATE/IPRATROPIU 3 ML SOL IH SCH ×6 (03:00→23:50)
[2022-05-26 04:00] VITALS: BP 147/99
[2022-05-26] MEDS: LORazepam 2 MG/ML VIAL IVP PRN ×2 (05:30→15:31)
--- NOTE | 2022-05-26 05:30 | NUR ---
PT IS VERY CONFUSED AND KEEPS ON REMOVING NC. PT WANTS TO GET OUT OF BED. ATIVAN WAS GIVEN.
--- NOTE | 2022-05-26 07:10 | NUR ---
RECIEVED REPORT FROM ENGLISH LANGUAGE LEARNER TUTOR NURSE FOR CONTINUITY OF CARE. PT STABLE AT THIS TIME.
--- NOTE | 2022-05-26 07:20 | NUR ---
ENDORSED PT TO DAY SHIFT RN FOR CONTINUITY OF CARE. PT IS STABLE.
[2022-05-26 08:00] VITALS: BP 146/87
[2022-05-26 08:51] LABS: BASOPHILS % (AUTO) 0.1 % (0.0-2.0); EOSINOPHILS % (AUTO) 0.1 % (0.0-4.0); HEMATOCRIT 43.8 % (36-48); HEMOGLOBIN 14.9 g/dL (12.0-16.0); LYMPHOCYTES # (AUTO) 0.7 K/uL (2.5-16.5); LYMPHOCYTES % (AUTO) 5.7 % (20.5-51.1); MEAN CORPUSCULAR HEMOGLOBIN 33 pg (27-31); MEAN CORPUSCULAR HGB CONC 34 g/dL (33-37); MEAN CORPUSCULAR VOLUME 97.5 fL (80-94); MONOCYTES % (AUTO) 8.5 % (1.7-9.3); NEUTROPHILS # (AUTO) 10.4 K/uL (1.8-7.7); NEUTROPHILS % (AUTO) 85.6 % (42.2-75.2); PLATELET COUNT (AUTO) 188 K/uL (140-450); RED CELL DISTRIBUTION WIDTH 14.6 % (11.6-13.7); WHITE BLOOD COUNT (AUTO) 12.2 K/uL (4.8-10.8)
[2022-05-26] MEDS: ENOXAPARIN 40 MG/0.4 ML SYR SUBQ SCH (08:57)
[2022-05-26] MEDS: methylPREDNISolone SS 40 MG/ML VIAL IVP SCH (08:57)
[2022-05-26] MEDS: HALOPERIDOL IM 5 MG/ML VIAL IM PRN ×2 (08:58→15:39)
[2022-05-26 09:43] LABS: ANION GAP 12.6 (8-16); CREATININE 0.7 mg/dL (0.6-1.3); POTASSIUM 3.6 mmol/L (3.5-5.1)
[2022-05-26 12:00] VITALS: BP 139/92
--- NOTE | 2022-05-26 12:00 | NUR ---
WAS INFORMED THAT MY PATIENT WAS FOUND ON THE GROUND. NO INJURY TO THE PATIENT. PT WAS ASSISTED BACK INTO BED AND BED ALARM WAS PUT ON.
--- NOTE | 2022-05-26 15:38 | NUR ---
05/26/22 RD FOLLOW UP COMPLETED PLEASE REFER TO NUTRITION ASSESSMENT UNDER CARE ACTIVITY FOR ESTIMATED NUTRITIONAL NEEDS. 1. CONTINUE NPO 2. RECOMMEND ST EVAL -IF PT PASSES ST EVAL, RECOMMEND CARDIAC DIET, WITH MODIFIED TEXTURE, PER ST -IF PT FAILS ST EVAL, WHEN/ IF MEDICALLY APPROPRIATE, AND IF PT GETS GTUBE, RECOMMEND VITAL AF 1.2 YANELIS RATE TO 45 ML/HR, FWF 100 ML Q6H TO MEET NUTRITIONAL NEEDS, WILL PROVIDE 1080 ML VOLUME, 1296 KCALS, 81 G PROTEIN, AND 1275 ML FREE WATER, MEETING 100% ESTIMATED CALORIE/ PROTEIN NEEDS, ADEQUATE 3. MONITOR LAB VALUES. 4. RD TO FOLLOW-UP 2-3 DAYS, HIGH RISK REVIEWED BY EDELMIRA VELAZQUEZ RD
[2022-05-26 16:00] VITALS: BP 135/86
--- NOTE | 2022-05-26 16:06 | NUR ---
ASSISTANT RESEARCH SCIENTIST CALLED AND ASKED IF PT COULD GO FOR SCAN. I SAID SHE COULD. YAIR CAME A NOTICED THAT PT MAY NOT STAY STILL IN MACHINE AT THIS TIME SO SHE TOLD ME TO CALL WHEN PT IS A LITTLE MORE CALM.
--- NOTE | 2022-05-26 16:12 | NUR ---
ST AT BEDSIDE DOING SWALLOW EVALUATION.
--- NOTE | 2022-05-26 17:34 | NUR ---
TUMBLER MACHINE OPERATOR CAME TO ASK PT IF SHE WOPULD ALLOW THEM TO DO THE CT AND PT REFUSED. PT STATED WE CAN DO IT ON SUNDAY.
[2022-05-26] MEDS ORDERED: LORazepam 2 MG/ML VIAL IM/IVP SCH (18:00)
--- NOTE | 2022-05-26 19:30 | NUR ---
ENDORSED PT TO [facility] SHIFT FOR CONTINUITY OF CARE. PT STABLE AT THIS TIME.
--- NOTE | 2022-05-26 19:31 | NUR ---
RECEIVED PATIENT ENDORSEMENT FROM ANNALEE STOREY , PATIENT NOTED IN BED AWAKE ATTEMPTING TO GET OUT OF THE BED. PATIENT IS EXTREMELY CONFUSED. THINKS WE ARE AT HER HOE AND TO CALL HER SON, NURSING ATTEMPTED REORIENTATION AND PATIENT WAS ABLE TO SETTLE DOWN. PATIENT RESPONSE TO HER NAME. NO S/S OF PAIN/DISCOMFORT. NO S/S OF RESPIRATORY DISTRESS. NOTED WAS DARK RED BRUISING TO BILATERAL ARMS BUT NO COMPLAINT OF PAIN WHEN TOUCHED. LEIVA INTACT. SIDE RAILS UP X 3 FOR SAFETY AND COMFORT. CALL LIGHT WITHIN REACH FOR MENTAL STIMULI. NURSING WILL FREQUENT THIS ROOM FOR ANTICIPATED ASSISTANCE. [email or web address]
[2022-05-26 20:00] VITALS: BP 132/76
--- NOTE | 2022-05-26 23:21 | NUR ---
PATIENT NOTED IN BED ASLEEP. CHEST RISING AND FALLING WITHOUT DISTRESS. NO S/S OF PAIN/DISCOMFORT. NURSING FREQUENTS THIS ROOM BECAUSE IS CONFUSED AND INSIST TO TRYING TO GET OUT OF BED. HIGH FALL RISK. [email or web address]
[2022-05-27] VITALS: BP 144/76
--- NOTE | 2022-05-27 01:09 | NUR ---
PATIENT WAS REDIRECTED TO REMAIN IN THE BED TO STAY SAFE. PATIENT REMAINS IN BED AT THIS TIME. NURSING WILL FREQUENT THE ROOM IN ANTICIPATION TO NEEDS. TO PROVIDE SAFE ENVIRONMENT FOR SAFE PATIENT CARE. [email or web address]
[2022-05-27] MEDS: ALBUTEROL SULFATE/IPRATROPIU 3 ML SOL IH SCH ×6 (03:09→23:00)
--- NOTE | 2022-05-27 03:36 | NUR ---
PATIENT NOTED IN BED ASLEEP. CHEST RISING AND FALLING WITHOUT DISTRESS. NO S/S OF PAIN/DISCOMFORT. NURSING FREQUENTS THIS ROOM FOR SAFETY AND ANTICIPATED ASSISTANCE. HIGH FALL RISK. MNURPH1
[2022-05-27 04:00] VITALS: BP 133/84
--- NOTE | 2022-05-27 05:14 | NUR ---
PATIENT WAS WASHED AND KEPT CLEAN. THE ORAL CARE WAS GIVEN BY NURSING. URINE NOTED DARK YELLOWISH BROWN. NO BOWEL MOVEMENT FOR THE SHIFT. SIDE RAILS UP. CALL LIGHT WITHIN REACH. NURSING FREQUENT THIS ROOM FOR ANTICIPATED NEEDS. [email or web address]
--- NOTE | 2022-05-27 05:18 | NUR ---
PATIENT WAS CLEANED FOR FOR BOWEL MOVEMENT. MODERATED, FORMED, DARK GREENISH BLACK. [email or web address]
--- NOTE | 2022-05-27 07:09 | NUR ---
ENDORSED PATIENT TO DAVID STOREY FOR CONTINUITY OF CARE. PATIENT IS IN BED SLEEPING. [email or web address]
--- NOTE | 2022-05-27 07:38 | NUR ---
received patient from overnight babysitter nurse. patient confused and trying to get out of bed. MD aware of situation.all safety measures in place.Fall precautions initiated. bed in low position. call light within reach. vs stable, will continue to monitor.
[2022-05-27] MEDS: HALOPERIDOL IM 5 MG/ML VIAL IM PRN (07:52)
[2022-05-27] MEDS: LORazepam 2 MG/ML VIAL IVP PRN (07:53)
[2022-05-27 08:00] VITALS: BP 124/75
[2022-05-27] MEDS: ENOXAPARIN 40 MG/0.4 ML SYR SUBQ SCH (08:46)
[2022-05-27] MEDS: methylPREDNISolone SS 40 MG/ML VIAL IVP SCH (08:47)
[2022-05-27 12:00] VITALS: BP 125/79
--- NOTE | 2022-05-27 12:20 | NUR ---
FREQUENT ROUNDS DONE. PATIENT IS STILL CONFUSED BUT ALERT TIMES 2. ON 2L NC. MORNING CARE GIVEN. ALL RYNE MEDS GIVEN. VS STABLE. NO SIGNS OF DISTRESS NOTED. ALL NEEDS MET UNTIL THIS TIME.
[2022-05-27 16:00] VITALS: BP 118/72
--- NOTE | 2022-05-27 19:25 | NUR ---
ENDORSED PATIENT TO WOOD CASKET ASSEMBLER NURSE FOR CONTINUITY OF CARE.
[2022-05-27 21:17] VITALS: BP 132/88
[2022-05-27] MEDS: ZOLPIDEM 10 MG TAB PO PRN (23:24)
[2022-05-28 00:04] VITALS: BP 133/84
[2022-05-28] MEDS: ALBUTEROL SULFATE/IPRATROPIU 3 ML SOL IH SCH ×5 (03:00→23:00)
[2022-05-28] MEDS: LORazepam 2 MG/ML VIAL IVP PRN (05:39)
--- NOTE | 2022-05-28 05:47 | NUR ---
rn notes patient remains on room air at this time, no sob noted, VSS all shift. 1;1 sitter at all time, given PRN 1 time ativan.
--- NOTE | 2022-05-28 07:00 | NUR ---
RECEIVED REPORT FROM NIGHTSHIFT NURSE. PT IS AWAKE, RESTING IN BED. PT IS PRIMARILY PASHTO SPEAKING, AOX2, ON 2L NC, NO SIGNS OF DISTRESS. NIGHTSHIFT NURSE REPORTS PT ATTEMPTS TO PULL AT IV'S AND LEIVA, PT HAS 1:1 SITTER. PT HAS LEFT SUBCLAVIAN TRIPLE LUMEN CENTRAL LINE, SKIN INTACT. BED IN LOWEST POSITION, SIDE RAILS UP, CALL LIGHT WITHIN REACH.
[2022-05-28 08:00] VITALS: BP 135/85
[2022-05-28] MEDS: ACETAMINOPHEN 325 MG TAB PO PRN ×2 (08:24→15:10)
[2022-05-28] MEDS: methylPREDNISolone SS 40 MG/ML VIAL IVP SCH (08:24)
[2022-05-28] MEDS: ENOXAPARIN 40 MG/0.4 ML SYR SUBQ SCH (10:16)
[2022-05-28 12:00] VITALS: BP 144/70
[2022-05-28 16:00] VITALS: BP 119/80
--- NOTE | 2022-05-28 19:30 | NUR ---
ENDORSED PT TO VICE PRESIDENT RISK MANAGEMENT RN FOR CONTINUITY OF CARE. PT IS STABLE AND SITTING UP IN BED. ON 2L NC. CENTRAL LINE CLEAN AND INTACT. NO SIGNS OF DISTRESS. BED IN LOWEST POSITION, 4 SIDE RAILS UP, CALL LIGHT PLACED WITHIN REACH.
--- NOTE | 2022-05-28 19:33 | NUR ---
RECEIVED REPORT FROM DAY SHIFT NURSE FOR CONTINUITY OF CARE. PT IS AWAKE IN BED ALERT AND ORIENTED X3 WITH PERIODS OF CONFUSION. PT IS PRIMARILY VENEZUELAN SPEAKING BUT DOES UNDERSTAND RWANDAN. PT CURRENTLY ON 2L NASAL CANULA WITH NO ACUTE SIGNS OF DISTRESS NOTED. LEIVA CATHETER IN PLACE AND INTACT. PT IS TO BE UNDER 1.1 FOR FALL PRECAUTIONS, ATTEMPTING TO REMOVE LEIVA, AND ASPIRATION PRECAUTIONS. SAFETY MEASURES IN PLACE, WILL CLOSELY MONITOR THROUGHOUT SHIFT.
[2022-05-28 20:00] VITALS: BP 156/85
--- NOTE | 2022-05-28 20:00 | NUR ---
Patient's Plan of Care was discussed and reviewed with ORAL HEALTH THERAPIST: JIMENEZ BARTON
[2022-05-28] MEDS: ZOLPIDEM 10 MG TAB PO PRN (20:49)
--- NOTE | 2022-05-28 20:50 | NUR ---
PT STATED HAVING DIFFICULTY WITH SLEEPING. AMBIEN 10 MG PRN WAS ADMINISTERED. NO SIGNS OF DISTRESS NOTED, WILL CONTINUE TO MONITOR. Addendum: 05/29/22 at 0448 by Kirk Castillo, FOREIGN CORRESPONDENT FOREIGN CORRESPONDENT PT INITIALLY REFUSED AMBIEN IN CRUSHED FORM WITH APPLE SAUCE, STATED SHE WANTED TO TAKE IT A PILL FORM. MEDICATION WAS WASTED AND RETAKEN FROM THE PIXUS. CUT MEDICATION IN 'S TO ENSURE PROPER ASPIRATION PRECAUTIONS WERE MET.
[2022-05-28] MEDS: MORPHINE SULFATE 2 MG/ML SYR IVP PRN (22:39)
--- NOTE | 2022-05-28 22:54 | NUR ---
PT COMPLAINT OF BACK PAIN ON A SCALE OF 6/10. REPOSITIONED THE PT BUT STILL COMPLAINS OF MODERATE PAIN. POC WAS DISCUSSED WITH NELSON STOREY. MORPHINE 2MG PRN FOR MODERATE PAIN LEVEL 4-6 WAS ADMINISTERED BY JONATHAN STOREY, WILL REASSESS PT IN ONE HOUR.
[2022-05-29] VITALS: BP 149/96
--- NOTE | 2022-05-29 00:05 | NUR ---
UPON REASSESSMENT, PAIN LEVEL OF 0-10. BP OF 149/96, AND HR OF 110. PT IS STABLE AT THIS TIME, WILL CONTINUE TO MONITOR.
--- NOTE | 2022-05-29 01:57 | NUR ---
PT ASLEEP IN BED. NOTICEABLE CHEST RISE AND FALL, BREATHING LABORED AND UNEVEN WITH AN IRREGULAR PATTERN. STILL ON 2L NC SATING AT 93%. NO S/SX OF ACUTE DISTRESS NOTED, WILL CONTINUE CLOSELY MONITORING.
[2022-05-29] MEDS: ALBUTEROL SULFATE/IPRATROPIU 3 ML SOL IH SCH ×6 (03:00→23:00)
[2022-05-29 04:00] VITALS: BP 120/73
--- NOTE | 2022-05-29 04:09 | NUR ---
0400 VS TAKEN. BP 120/73, HR 93, O2 96%, RR 22, TEMP 98.4. NO SIGNS OF DISTRESS NOTED, WILL CONTINUE 1:1 MONITORING.
--- NOTE | 2022-05-29 06:07 | NUR ---
PT SLEPT THROUGHOUT THE NIGHT WITH NO COMPLICATIONS. 300 ML WAS DRAINED FROM LEIVA. PT HAD NO BM LAST NIGHT. WILL ENDORSE TO DAY SHIFT NURSE IN STABLE CONDITION.
--- NOTE | 2022-05-29 06:50 | NUR ---
PT REFUSED BREATHING TX. NO DISTRESS NOTED. VITALS WERE CHECKED WHILE PT WAS ON ROOM AIR. SAT 92% HR 114. WILL CONTINUE TO MONITOR.
--- NOTE | 2022-05-29 07:27 | NUR ---
RECEIVED PT FROM MESH CUTTER NURSE FOR CONTINUITY OF CARE. PT IN BED SLEEPING. VISIBLE CHEST RISE AND FALL. PT LIFTS HEAD AND SAYS "I NEED TO SLEEP". ROLLS OVER FROM LEFT TO RIGHT ON BED. SKIN WARM AND DRY. LEIVA IN PLACE AND DRAINING TO GRAVITY. ALL SAFETY PRECAUTIONS IN PLACE. CARE ONGOING, MONITORING 1:1.
[2022-05-29 08:00] VITALS: BP 149/99
--- NOTE | 2022-05-29 08:00 | NUR ---
Patient's Plan of Care was discussed and reviewed with CHAR CONVEYOR TENDER: GRANT
[2022-05-29] MEDS: methylPREDNISolone SS 40 MG/ML VIAL IVP SCH (09:37)
[2022-05-29 09:47] LABS: BASOPHILS # (AUTO) 0.1 K/uL (0.00-0.22); BASOPHILS % (AUTO) 0.4 % (0.0-2.0); EOSINOPHILS # (AUTO) 0.2 K/uL (0-0.4); HEMATOCRIT 43.4 % (36-48); HEMOGLOBIN 14.8 g/dL (12.0-16.0); LYMPHOCYTES % (AUTO) 6.1 % (20.5-51.1); MEAN CORPUSCULAR HEMOGLOBIN 33 pg (27-31); MEAN CORPUSCULAR HGB CONC 34 g/dL (33-37); MEAN CORPUSCULAR VOLUME 97.9 fL (80-94); MONOCYTES % (AUTO) 5.8 % (1.7-9.3); NEUTROPHILS # (AUTO) 14.5 K/uL (1.8-7.7); NEUTROPHILS % (AUTO) 86.7 % (42.2-75.2); PLATELET COUNT (AUTO) 235 K/uL (140-450); RED BLOOD CELL COUNT(AUTO) 4.44 MIL/uL (4.20-5.40); RED CELL DISTRIBUTION WIDTH 14.8 % (11.6-13.7); WHITE BLOOD COUNT (AUTO) 16.7 K/uL (4.8-10.8)
[2022-05-29] MEDS: ENOXAPARIN 40 MG/0.4 ML SYR SUBQ SCH (10:02)
--- NOTE | 2022-05-29 10:06 | NUR ---
ADMINISTERED SCHEDULED MED, PT TOLERATED WELL.
[2022-05-29 10:14] LABS: ANION GAP 12.1 (8-16); CARBON DIOXIDE 27.3 mmol/L (21-32); CREATININE 0.6 mg/dL (0.6-1.3); POTASSIUM 3.4 mmol/L (3.5-5.1)
[2022-05-29] MEDS: HALOPERIDOL IM 5 MG/ML VIAL IM PRN (10:24)
[2022-05-29] MEDS: guaiFENesin 600 MG TABER PO SCH ×2 (11:14→21:00)
--- NOTE | 2022-05-29 11:24 | NUR ---
ADMINISTERED PRN POTASSIUM AND SCHEDULED COUGH MEDICATION. PT TOLERATING WELL.
--- NOTE | 2022-05-29 11:47 | NUR ---
PATIENT VISITING. PATIENT BECAME AGGRAVATED WHEN SAID HE'S LEAVING FOR WORK. PT STATES "I AM LEAVING TOO, I WILL TAKE OUT ALL THESE CORDS. DONT LEAVE ME" PT ATTEMPTS TO GET OUT OF BED. PATIENT REDIRECTED BY NURSE. PT NOW CALM ON BED RESTING.
[2022-05-29 12:00] VITALS: BP 134/84
[2022-05-29] MEDS: ACETAMINOPHEN 325 MG TAB PO PRN (14:45)
--- NOTE | 2022-05-29 14:45 | NUR ---
PT COMPLAINS OF HEADACHE, PRN TYLENOL GIVEN.
[2022-05-29 16:00] VITALS: BP 133/84
[2022-05-29] MEDS: LORazepam 2 MG/ML VIAL IVP PRN (16:59)
--- NOTE | 2022-05-29 17:11 | NUR ---
05/29/22 RD FOLLOW UP COMPLETED.PLEASE REFER TO NUTRITION ASSESSMENT UNDER CARE ACTIVITY FOR ESTIMATED NUTRITIONAL NEEDS. 1. CONTINUE WITH CADIAC DIET (PUREE, HONEY THICK LIQUIDS) PER SPEECH PATH. 2. MONITOR NUTRITION-RELATED LAB VALUES. 3. RD TO FOLLOW-UP IN 3-5 DAYS PATIENT IS MODERATE RISK. GILMER ANTONY RD
--- NOTE | 2022-05-29 19:03 | NUR ---
ENDORSED PT TO MOLDER HELPER NURSE FOR CONTINUITY OF CARE. PT IS STABLE.
--- NOTE | 2022-05-29 19:48 | NUR ---
RECEIVED REPORT FROM DAY SHIFT NURSE FOR CONTINUITY OF CARE. PT IS AWAKE IN BED ALERT AND ORIENTED X4 WITH PERIODS OF CONFUSION. PT IS PRIMARILY AMERICAN SPEAKING BUT DOES UNDERSTAND SOUTH KOREAN. PT CURRENTLY ON 2L NASAL CANULA WITH NO ACUTE SIGNS OF DISTRESS NOTED. LEIVA CATHETER IN PLACE AND INTACT. PT IS TO BE UNDER 1.1 FOR FALL PRECAUTIONS, ATTEMPTING TO REMOVE LEIVA, AND ASPIRATION PRECAUTIONS. SAFETY MEASURES IN PLACE, WILL CLOSELY MONITOR THROUGHOUT SHIFT.
[2022-05-29 20:00] VITALS: BP 132/79
[2022-05-29] MEDS: ZOLPIDEM 10 MG TAB PO PRN (22:35)
--- NOTE | 2022-05-29 22:35 | NUR ---
PT INITIALLY REFUSED HER MUCINEX AT 2100. STATED SHE NOW WANTS IT ADMINISTERED. PT ALSO REQUESTED AMBIEN TO HELP HER SLEEP. BOTH WERE ADMINISTERED WITH NO COMPLICATIONS. PT STABLE AT THIS TIME, WILL CONTINUE TO MONITOR.
[2022-05-30] VITALS: BP 121/74
--- NOTE | 2022-05-30 02:56 | NUR ---
PT ASLEEP, CHEST RISE AND FALL NOTED, RESPIRATIONS UNEVEN AND LABORED. O2 SATURATION AT 94%, NO ACUTE DISTRESS NOTED, WILL CONTINUE TO MONITOR.
[2022-05-30] MEDS: ALBUTEROL SULFATE/IPRATROPIU 3 ML SOL IH SCH ×6 (03:19→23:05)
[2022-05-30 04:00] VITALS: BP 146/67
[2022-05-30] MEDS: ACETAMINOPHEN 325 MG TAB PO PRN (06:26)
--- NOTE | 2022-05-30 06:50 | NUR ---
ADMINISTERED TYLENOL PRN FOR COMPLAINTS OF HEADACHE. PT TOLERATED WELL, WILL ENDORSE TO DAY SHIFT NURSE FOR CONTINUITY OF CARE.
--- NOTE | 2022-05-30 07:15 | NUR ---
RECEIVED REPORT FROM GOSPEL WORKER NURSE FOR CONTINUITY OF CARE. PT STABLE AT THIS TIME.
[2022-05-30 08:00] VITALS: BP 140/67
[2022-05-30] MEDS: methylPREDNISolone SS 40 MG/ML VIAL IVP SCH (09:43)
[2022-05-30] MEDS: guaiFENesin 600 MG TABER PO SCH ×2 (09:46→20:34)
[2022-05-30] MEDS: ENOXAPARIN 40 MG/0.4 ML SYR SUBQ SCH (09:50)
[2022-05-30 12:00] VITALS: BP 146/70
[2022-05-30 16:00] VITALS: BP 139/72
--- NOTE | 2022-05-30 16:36 | NUR ---
DC PLANNING: PER PHYSICAL THERAPY RECOMMENDATION FAXED TO [facility] AND CONTRACTED FACILITY. CM SPOKE WITH PT'S STATED NO ONE IS HELPING PATIENT AT HOME AND REQUESTING TO GO TO SNF. FAXED TO [facility], AND [facility]. DC PLAN AWAITING FOR ACCEPTING FACILITY. CM TO FOLLOW Addendum: 05/31/22 at 1610 by BELÉN ELAM CM FAXED TO [facility]. SPOKE WITH MELY AT [facility] LOCATED AT [address] [place] [address] AND PT WAS ACCEPTED. PT WILL BE GOING TO ROOM 6-B UNDER THE CARE OF DR LAWRENCE. PT WILL BE LEAVING TOMORROW WHEN SHE IS STABLE FOR TRANSPORT.
[2022-05-30] MEDS: KCL 20 MEQ IN 100 mL PREMIX 200 ML IV PRN (17:58)
--- NOTE | 2022-05-30 19:24 | NUR ---
ENDORSED PT TO PATCH WASHER NURSE FOR CONTINUITY OF CARE. PT STABLE AT THIS TIME.
--- NOTE | 2022-05-30 19:30 | NUR ---
RECEIVED PT FROM AM NURSE FOR CONTINUITY OF CARE. PT IS STABLE
[2022-05-30 20:00] VITALS: BP 142/84
[2022-05-30] MEDS: ZOLPIDEM 10 MG TAB PO PRN (23:05)
[2022-05-31] VITALS: BP 138/79
--- NOTE | 2022-05-31 | NUR ---
PATIENT ASLEEP, NO DISTRESS NOTED, ALL SAFETY MEASURES IN PLACE
[2022-05-31 04:00] VITALS: BP 135/81
[2022-05-31] MEDS: ACETAMINOPHEN 325 MG TAB PO PRN ×2 (04:37→20:57)
--- NOTE | 2022-05-31 07:15 | NUR ---
ENDORSED PT TO AM NURSE FOR CONTINUITY OF CARE. PT IS STABLE
--- NOTE | 2022-05-31 07:26 | NUR ---
RECIEVED PATIENT FROM PM NURSE FOR CONTINUITY OF CARE
[2022-05-31 08:00] VITALS: BP 134/81
[2022-05-31] MEDS: methylPREDNISolone SS 40 MG/ML VIAL IVP SCH (08:39)
[2022-05-31] MEDS: ENOXAPARIN 40 MG/0.4 ML SYR SUBQ SCH (08:40)
[2022-05-31 08:44] LABS: BASOPHILS % (AUTO) 0.1 % (0.0-2.0); EOSINOPHILS # (AUTO) 0.1 K/uL (0-0.4); EOSINOPHILS % (AUTO) 0.4 % (0.0-4.0); HEMATOCRIT 43.4 % (36-48); HEMOGLOBIN 14.5 g/dL (12.0-16.0); LYMPHOCYTES # (AUTO) 0.9 K/uL (2.5-16.5); LYMPHOCYTES % (AUTO) 2.4 % (20.5-51.1); MEAN CORPUSCULAR HEMOGLOBIN 33 pg (27-31); MEAN CORPUSCULAR HGB CONC 33 g/dL (33-37); MEAN CORPUSCULAR VOLUME 98.3 fL (80-94); MONOCYTES # (AUTO) 1.1 K/uL (0.8-1.0); MONOCYTES % (AUTO) 3.2 % (1.7-9.3); NEUTROPHILS # (AUTO) 33.4 K/uL (1.8-7.7); NEUTROPHILS % (AUTO) 93.9 % (42.2-75.2); PLATELET COUNT (AUTO) 272 K/uL (140-450); RED BLOOD CELL COUNT(AUTO) 4.41 MIL/uL (4.20-5.40); RED CELL DISTRIBUTION WIDTH 14.7 % (11.6-13.7)
[2022-05-31 08:45] LABS: ANION GAP 12.7 (8-16); CARBON DIOXIDE 26.1 mmol/L (21-32); CREATININE 0.8 mg/dL (0.6-1.3); POTASSIUM 3.8 mmol/L (3.5-5.1)
[2022-05-31] MEDS: ALBUTEROL SULFATE/IPRATROPIU 3 ML SOL IH SCH ×5 (08:46→23:00)
[2022-05-31] MEDS: guaiFENesin 600 MG TABER PO SCH ×2 (08:48→20:46)
[2022-05-31 09:01] LABS: WHITE BLOOD COUNT (AUTO) 35.6 K/uL (4.8-10.8)
[2022-05-31 12:00] VITALS: BP 133/78
[2022-05-31 16:00] VITALS: BP 137/86
--- NOTE | 2022-05-31 16:00 | NUR ---
PATIENT AMBULATORY WITH ASSISTANCE. AOX4. REQUESTS TO GO HOME BUT STATES NO ONE CAN TAKE CARE OF HER.
--- NOTE | 2022-05-31 19:27 | NUR ---
ENDORSED PT TO SUPERVISOR HOT DIP TINNING FOR CONTINUITY OF CARE. PT STABLE.
--- NOTE | 2022-05-31 19:35 | NUR ---
RECEIVED PT FROM AM NURSE FOR CONTINUITY OF CARE. PT IS STABLE
[2022-05-31 20:00] VITALS: BP 137/81
[2022-05-31] MEDS: ZOLPIDEM 10 MG TAB PO PRN (20:58)
[2022-06-01] VITALS: BP 130/76
--- NOTE | 2022-06-01 | NUR ---
PATIENT ASLEEP, ALL SAFETY MEASURES IN PLACE ,NO DISTRESS NOTED
[2022-06-01] MEDS: ALBUTEROL SULFATE/IPRATROPIU 3 ML SOL IH SCH ×7 (03:00→23:58)
[2022-06-01 04:00] VITALS: BP 140/82
--- NOTE | 2022-06-01 06:40 | NUR ---
PICC LINE DRESSING CHANGED TODAY
[2022-06-01] MEDS: ACETAMINOPHEN 325 MG TAB PO PRN (06:45)
[2022-06-01 08:00] VITALS: BP 106/75
[2022-06-01] MEDS: guaiFENesin 600 MG TABER PO SCH ×2 (08:27→21:00)
[2022-06-01] MEDS: ENOXAPARIN 40 MG/0.4 ML SYR SUBQ SCH (08:28)
[2022-06-01] MEDS: methylPREDNISolone SS 40 MG/ML VIAL IVP SCH (08:28)
[2022-06-01] MEDS: MORPHINE SULFATE 2 MG/ML SYR IVP PRN ×2 (09:11→15:05)
[2022-06-01] MEDS ORDERED: HYDROcodone/APAP 5/325 MG 1 TAB TAB PO PRN (09:15)
--- NOTE | 2022-06-01 11:00 | NUR ---
PT DOESN'T WANT TREATMENT A THIS TIME. WILL COME BACK LATER.
[2022-06-01 12:00] VITALS: BP 119/83
--- NOTE | 2022-06-01 14:56 | NUR ---
ASKED PT IF SHE WOULD LIKE HER BREATHING TREATMENT. PATIENT SAID NOT AT THIS TIME BECAUSE HER STOMACH WAS UPSET. NOTIFIED NURSE. BEATH SOUNDS WERE CLEAR AND SATURATION WAS 98%. WILL CONTINUE TO MONITOR.
--- NOTE | 2022-06-01 15:29 | NUR ---
PHYSICAL THERAPY CO-SIGN The Physical Therapy Progress Notes documented by Coach Mechanic have been reviewed. Reviewed/Co-Signed by: Constance Amezquita PT Documentation Done by:WARREN BARBER SKEIN WINDING OPERATOR Addendum: 06/02/22 at 1530 by Constance Amezquita PT Amended: Links added.
[2022-06-01 16:00] VITALS: BP 118/77
[2022-06-01] MEDS ORDERED: SIMETHICONE 80 MG TAB.CHEW PO PRN (16:35)
[2022-06-01 18:06] LABS: HEMATOCRIT 49.6 % (36-48); HEMOGLOBIN 16.8 g/dL (12.0-16.0); MEAN CORPUSCULAR HEMOGLOBIN 33 pg (27-31); MEAN CORPUSCULAR HGB CONC 34 g/dL (33-37); MEAN CORPUSCULAR VOLUME 98.6 fL (80-94); PLATELET COUNT (AUTO) 280 K/uL (140-450); RED BLOOD CELL COUNT(AUTO) 5.03 MIL/uL (4.20-5.40); RED CELL DISTRIBUTION WIDTH 15.6 % (11.6-13.7)
[2022-06-01 18:20] LABS: CARBON DIOXIDE 21.2 mmol/L (21-32); CREATININE 2.1 mg/dL (0.6-1.3); POTASSIUM 5.2 mmol/L (3.5-5.1)
[2022-06-01] MEDS ORDERED: METOCLOPRAMIDE 10 MG/2 ML INJ VIAL IVP PRN (18:30)
[2022-06-01 18:42] LABS: WHITE BLOOD COUNT (AUTO) 28.8 K/uL (4.8-10.8)
[2022-06-01 18:43] LABS: EOSINOPHILS % (MANUAL) 1 % (0-4); LYMPHOCYTES % (MANUAL) 3 % (20-46); MONOCYTES % (MANUAL) 5 % (5-12)
[2022-06-01] MEDS ORDERED: SODIUM ZIRCONIUM CYCLOSILICATE 10 GM POWD.PACK PO ONE (19:25)
--- NOTE | 2022-06-01 19:33 | NUR ---
ABD DISTENDED, TENDER. MEDICATED WITH MORPHINE X2 AND NORCO WITH LITTLE RELIEF. INTERMITTENT NAUSEA WITH EMESIS X6, ANTIEMETICS GIVEN. DIARRHEA X3. CDIFF SAMPLE ORDERED. FC REMOVED, DUE TO VOID. CT SCAN WITH CONTRAST ORDERED PER MD ORDERS. NEPHROLOGY CONSULTED FOR INCREASED CREATININE. VSS. AFEBRILE. ALL NEEDS MET, SAFETY AND COMFORT MEASURES MAINTAINED, CALL LIGHT WITHIN REACH.
--- NOTE | 2022-06-01 19:37 | NUR ---
PT REFUSING BREATHING TX AT THIS TIME, STATING HER STOMACH IS BOTHERING HER. PATIENT IS AWARE OF NEEDED TREATMENT. PT IS IN NO RESPIRATORY DISTRESS AT THIS TIME SATURATION 97% ON 2L N/C. RN AWARE OF PATIENTS COMPLAINT OF STOMACH DISCOMFORT, WILL CONTINUE TO MONITOR
--- NOTE | 2022-06-01 19:45 | NUR ---
RECEIVED PT NOT ON RESTRAINT PER AM NURSE PT IS NOT ON RESTRAINT BEC. PT IS AAOX4 , FOLLOW THE COMMAND AND RESTING CALM ON BED , WILL CONT. TO MONITOR . BEDALARM ON , CALL LIGHT WITHIN REACH .
[2022-06-01 20:00] VITALS: BP 118/75
[2022-06-01] MEDS ORDERED: DEXT 5% /NACL 0.9% 1,000 ML IV SCH (20:30)
[2022-06-01] MEDS ORDERED: SODIUM ZIRCONIUM CYCLOSILICATE 10 GM POWD.PACK ONE (20:34)
[2022-06-01 20:55] LABS: ANION GAP 19.8 (8-16); CARBON DIOXIDE 22.1 mmol/L (21-32); CREATININE 2.5 mg/dL (0.6-1.3); POTASSIUM 5.9 mmol/L (3.5-5.1)
--- NOTE | 2022-06-01 21:06 | NUR ---
INFORM DR. FAY PT REFUSED INSERTION OF LEIVA CATH , AND LOKELMA - WILL WAIT HER RESPONSE . Addendum: 06/01/22 at 2111 by Apolonia Acosta RN PT IS ON PUREWICK , ON CANISTER CONNECTING TO PUREWICK IS FULL , CLEAR IN APPEARANCE . WILL CONT. TO MONITOR Addendum: 06/02/22 at 025 by Apolonia Acosta RN at 2111 -informed both rosalba and abigail pt refused kidneys us
--- NOTE | 2022-06-01 21:35 | NUR ---
REFER TO DR. FAY AND DR FORRESTER IF STILL WILL CARRY OUT THE IVF , LATEST RESULT OF CXR
[2022-06-01] MEDS ORDERED: INSULIN REGULAR, HUMAN 100 UNIT/ML VIAL IVP SCH (21:45)
[2022-06-01] MEDS ORDERED: DEXTROSE 50% 50 ML SYR IVP SCH (21:45)
--- NOTE | 2022-06-01 21:50 | NUR ---
LATEST CXR RESULT SENT BOTH USAMA AND DR Gabriele FAY - PER DR. FORRESTER DECREASE IVF TO 75 /CC - WILL CARRY OUT . Addendum: 06/01/22 at 2247 by Apolonia Acosta RN AT 2234 , AUSCULTATE THE LUNGS SOUNDS , THERE IS CRACKLES ON THE LEFT BASE UPPER PART OF THE LUNGS , INFORMED ALREADY DR. FAY ABOUT IT . Addendum: 06/02/22 at 0229 by Apolonia Acosta RN PER DR. FORRESTER CARRY OUT IVF BUT 75 CC/ INSTEAD OF 100 /CC - CHARGE NURSE AWARE .
[2022-06-01] MEDS: DEXT 5% /NACL 0.9% 1,000 ML IV SCH (22:17)
--- NOTE | 2022-06-01 22:23 | NUR ---
RE EDUCATES PT. THE IMPORTANCE OF LOKELMO - PT NOW AGREE TO TAKE IT NOW .
--- NOTE | 2022-06-01 22:40 | NUR ---
PER PT GIVE ME MEDICINE THAT MAKES ME RELAX , BIT NERVOUS SHE KEEPS TOUCHING HER CALL LIGHT [employer] SHE DOES NOT PRESS THE THE RED BUTTON - BP 110/ 63 , HR 122 - WILL MEDICATE .
--- NOTE | 2022-06-01 22:43 | NUR ---
PT AGAIN REFUSING SCHEDULED TREATMENT DUE TO ABDOMINAL PAIN, PT BREATH SOUNDS : SLIGHT EXPIRATORY WHEEZE, CLEAR IN THE APICES, WITH COARSE CRACKLES IN THE BASES. RECOMMENDED TO THE PT THE ADMINISTRATION OF THE TREATMENT WOULD HELP, HOWEVER PATIENT STILL REFUSED, RN PRESENT BEDSIDE. WILL CONTINUE TO MONITOR
[2022-06-01] MEDS: LORazepam 2 MG/ML VIAL IVP PRN (22:44)
--- NOTE | 2022-06-01 23:18 | NUR ---
PER PT . SHE IS SO TIRED AND FEELING NO ENOUGH CARE - WILL REFER TO RT FOR FURTHER ASSESSMENT . CALL LIGHT WITHIN REACH - FOR CLOSELY MONITOR . Addendum: 06/01/22 at 2344 by Apolonia Acosta RN AT 2318 O2 SAT 98 %
--- NOTE | 2022-06-01 23:59 | NUR ---
RT AT BEDSIDE
[2022-06-02] VITALS (38 sets, daily range): BP systolic 48–164; BP diastolic 23–91
--- NOTE | 2022-06-02 00:16 | NUR ---
BP RE CHECK 133/ 99 , O2 SAT 96 % , RR 20 , WILL CONT. TO MONITOR . Addendum: 06/02/22 at 0252 by Apolonia Acosta RN [facility] - yony - jonah w/ sap - inform charge nurse diet order is not updated .
--- NOTE | 2022-06-02 01:10 | NUR ---
at labored breathing more audible wheezes and crackles , abd more bigger in appearance , desating , ocassionally 91 % but mostly down to 80'2 and 70's % , facial puffiness noted , stat refer to rt . Addendum: 06/02/22 at 303 by Apolonia Acosta RN at 0130 pt is on [employer] with very small u.o . At this time we re encourage pt for [facility] , at this time pt . agree for [facility] . Addendum: 06/02/22 at 305 by Apolonia Acosta RN THE WORD AT IN THE ABOVE NURSE'S NOTE IS AN ERROR ENTRY - DONELL
--- NOTE | 2022-06-02 01:50 | NUR ---
INFORM / SUMEET , PT IS LABORED BREATHING , C/O SUDDENLY HEADACHE , AND WHEEZES AND CRACKLES BREATH SOUNDS , O2 DESATING , BP 84/44 , FACIAL PUFFINESS NOTED . Addendum: 06/02/22 at 0227 by Apolonia Acosta RN TOO BLOATED ABDOMEN - STAT CXR AND STAT KUB PER RT . - INFORMED DR. FAY .
--- NOTE | 2022-06-02 02:13 | NUR ---
TRANSFER TO ICU ORDERED , LATEST BP 84/44 , HR 120 , RR 22 , O2 SAT 91% T 98.0 F AWAKE , AAOX4
--- NOTE | 2022-06-02 02:19 | NUR ---
TELL THE ICU NURSE PT IS ALREADY THERE - INFORM HER PT IS FOR LEVOPED NEEDED .
--- NOTE | 2022-06-02 02:30 | NUR ---
@0215 Received pt on transfer from [facility] due to shortness of breath labor breathing tachypneic tachycardia restless/anxious, cool and clammy skin. Bleed sugar checked was 127 and oral temp was 97.7 denies pain. Placed on Bipap by R. Pt able to follow commands moves all extremities aware she is in the hospital, education and reorientation to the unit will continue to support and treat as per care plan.
--- NOTE | 2022-06-02 02:35 | NUR ---
Received report from Apolonia STOREY the nurse taking care of pt in [facility] prior to transfer to the unit .
--- NOTE | 2022-06-02 02:35 | NUR ---
ENDORSED PT TO ICU NURSE , FOR CONT. OF CARE .
--- NOTE | 2022-06-02 02:35 | NUR ---
Notified Dr FAY about pt's condition as received in ICU order received to do ABG and call critical care MD production artist
--- NOTE | 2022-06-02 02:53 | NUR ---
will inform family pt transferred to icu Addendum: 06/02/22 at 0403 by Apolonia Acosta RN INFORMED RELATIVE - PT IS IN ICU .
--- NOTE | 2022-06-02 02:57 | NUR ---
TITRATED FiO2 FROM 100% TO 60% AFTER ABG RESULTS. SPO2 96%. WILL CONTINUE TO MONITOR PT AND TITRATE FiO2.
[2022-06-02] MEDS ORDERED: SODIUM BICARBONATE 8.4% PFS 50 MEQ/50 ML SYR IVP SCH (03:15)
[2022-06-02] MEDS ORDERED: NACL 0.9% 1,000 ML IV SCH (03:15)
[2022-06-02] MEDS ORDERED: DEXMEDETOMIDINE HCL 400 MCG in NACL 0.9% 96 ML IV PRN (03:15)
[2022-06-02] MEDS ORDERED: DEXMEDETOMIDINE HCL 100 MCG/ML 2 ML VIAL IV ONE (03:21)
[2022-06-02] MEDS ORDERED: MEROPENEM 500 MG VIAL IV ONE (03:40)
[2022-06-02] MEDS: DEXT 5% /NACL 0.9% 1,000 ML IV SCH (04:00)
--- NOTE | 2022-06-02 04:30 | NUR ---
@[address] Corral about the pt's condition on transfer to ICU labs value with elevated WBC 28.8 pt not on any antibiotics , BUN, Creatinie Potassium Low PCO2 on blood gas 24.2 po2 498 order received, 1 liter NS iv BOLUS, 2 AMPS OF BICARB, Meropenem 500mg q6, ivpb, and to decrease Fio2 to 50% all done pt tolerated well no adverse reaction noted vitals signs stable
--- NOTE | 2022-06-02 04:46 | NUR ---
SPO2 98%. TITRATED FROM 60% TO 30%. SPO2 96%. PT TOLERATING WELL AT THIS TIME. WILL CONTINUE TO MONITOR PT.
[2022-06-02] MEDS ORDERED: NOREPINEPHRINE 4 MG/4 ML VIAL IV ONE (05:25)
[2022-06-02 06:08] LABS: BASOPHILS % (AUTO) 0.1 % (0.0-2.0); EOSINOPHILS % (AUTO) 0.1 % (0.0-4.0); HEMATOCRIT 44.7 % (36-48); LYMPHOCYTES # (AUTO) 0.7 K/uL (2.5-16.5); LYMPHOCYTES % (AUTO) 3.5 % (20.5-51.1); MEAN CORPUSCULAR HEMOGLOBIN 33 pg (27-31); MEAN CORPUSCULAR HGB CONC 34 g/dL (33-37); MEAN CORPUSCULAR VOLUME 98.9 fL (80-94); MONOCYTES % (AUTO) 4.8 % (1.7-9.3); NEUTROPHILS # (AUTO) 19.1 K/uL (1.8-7.7); NEUTROPHILS % (AUTO) 91.5 % (42.2-75.2); PLATELET COUNT (AUTO) 208 K/uL (140-450); RED BLOOD CELL COUNT(AUTO) 4.52 MIL/uL (4.20-5.40); RED CELL DISTRIBUTION WIDTH 15.1 % (11.6-13.7); WHITE BLOOD COUNT (AUTO) 20.9 K/uL (4.8-10.8)
[2022-06-02] MEDS: NOREPINEPHRINE 4 MG in DEXTROSE 5% 250 ML IV PRN ×2 (06:10→14:12)
[2022-06-02] MEDS: ALBUTEROL SULFATE/IPRATROPIU 3 ML SOL IH SCH ×5 (07:00→23:00)
[2022-06-02 07:03] LABS: ANION GAP 18.1 (8-16); CARBON DIOXIDE 25.5 mmol/L (21-32); POTASSIUM 4.6 mmol/L (3.5-5.1)
[2022-06-02 07:04] LABS: MAGNESIUM 1.5 mg/dL (1.8-2.4); PHOSPHORUS 7.8 mg/dL (2.5-4.9)
--- NOTE | 2022-06-02 07:28 | NUR ---
Change of shift report given to Destiny STOREY for continuity of care as at this time pt tolerating all care and treatments fairly.
--- NOTE | 2022-06-02 07:30 | NUR ---
RECEIVED PT ON PORSHA V60 SETTING 16\8. F16, 30%. SIZE SMALL MASK. SATURATION WAS FROM FROM 85% TO 90%. TITRATED FIO2 TO 40%. SATURATION 92%.RALES AT THE BASES, DIMINISHED UPPER WITH A FAINT EXPIRATORY WHEEZE. BREATHING TREATMENT GIVEN. IMPROVED AERATION. PT TRIES TO TAKE BIPAP OFF. INSTRUCTED HER ON THE IMPORTANCE OF KEEPING IT ON. WILL CONTINUE TO MONITOR.
[2022-06-02] MEDS: guaiFENesin 600 MG TABER PO SCH ×2 (09:00→21:00)
[2022-06-02] MEDS ORDERED: ENOXAPARIN 30 MG/0.3 ML SYR SUBQ SCH (09:00)
[2022-06-02] MEDS: MEROPENEM 500 MG in NACL 0.9% 50 ML IV SCH ×2 (09:19→21:05)
[2022-06-02] MEDS: methylPREDNISolone SS 40 MG/ML VIAL IVP SCH (09:20)
--- NOTE | 2022-06-02 11:39 | NUR ---
PHYSICAL THERAPY NOTE: RN DID NOT GIVE CLEARANCE FOR PHYSICAL THERAPY TREATMENT TODAY DUE TO PATIENT'S RESPIRATORY DISTRESS DURING MOBILITY. PATIENT IS CURRENTLY ON HI FLOW 35L AT 35%, O2 SAT 93-95%. WILL FOLLOW UP NEXT VISIT.
--- NOTE | 2022-06-02 11:40 | NUR ---
CALLED TO BEDSIDE FOR DESATURATION. CHANGED OUT PULSE OX. ELEVATED RESPIRATORY RATE IN THER 40S. PT STATED SHE WAS IN PAIN. OUT OF CONCERN FOR THE PATIENT WAS HAD THE ER DOC TAKE A LOOK AT HER. NO INTUBATION AT THE TIME. ABG RAN AND GIVEN TO DR DIAZ. DR. ARCOS RECOMMENDS HIGHFLOW AT THIS TIME. WILL CONTINUE TO MONITOR.
[2022-06-02] MEDS ORDERED: FUROSEMIDE 20 MG/2 ML VIAL IVP ONE (11:45)
[2022-06-02] MEDS ORDERED: FUROSEMIDE 20 MG/2 ML VIAL IVP SCH (11:45)
[2022-06-02] MEDS: LORazepam 2 MG/ML VIAL IVP PRN (11:46)
[2022-06-02] MEDS: MORPHINE SULFATE 2 MG/ML SYR IVP PRN ×2 (11:46→13:19)
[2022-06-02] MEDS ORDERED: SODIUM BICARBONATE 8.4% 150 MEQ in DEXTROSE 5% 1,000 ML IV SCH ×2 (12:20→13:00)
--- NOTE | 2022-06-02 12:31 | NUR ---
1104: B/P allegedly dropped to 67/47, Levophed was increased to 7 mcg. RR has increased to 40 on biPAP @ 40% and HR incfreased to 138. 1145: Rapid response called for continued increased HR and RR, patient was given Ativan 2 mg IV per PMD phone request. ER MD at bedside asked that Levophed be increased to max 25 mcg. ABG obtained. Changing pulse oxymeter for better waveform. 1200: Holding on intubation per ER MD, pO2 by ABG is 367.8. FIO2 on biPAP decreased from 100% back to 40%. 1230: Dr. Reed contacted and ordered change in IV fluids to D5W with bicarb. Dr. Gutiérrez updated and requested Derek be contacted for orders. Patient appears more comfortable. 1240: biPAP DC'd and patient started on HFNC 40% FIO2 at 40 l/min. Addendum: 06/02/22 at 1400 by Agency Nurse Gloria, RN RN 1400: Dr. Christianson texted abd series report. Patient currently off Levophed and precedex and B/P 114/40.
--- NOTE | 2022-06-02 12:41 | NUR ---
PT CURRENTLY ON HFNC 40L,40%, 34 DEGREE. PER JOSSELYN CHAVEZ VERBAL ORDER. WILL CONTINUE TO MONITOR.
--- NOTE | 2022-06-02 12:45 | NUR ---
BREATHING TREATMENT NOT GIVEN DUE TO PATIENT DISTRESS. PT IS RESTING COMFORTABLY AT THIS TIME. WILL CONTINUE TO MONITOR.
[2022-06-02] MEDS ORDERED: EPINEPHrine PFS 0.1 MG/ML SYR IVP ONE (14:15)
[2022-06-02] MEDS ORDERED: CODE BLUE PARTICIPANT 1 EA MISC MC ONE (14:15)
[2022-06-02] MEDS ORDERED: SODIUM BICARBONATE 8.4% PFS 50 MEQ/50 ML SYR IVP ONE ×4 (14:15→19:20)
--- NOTE | 2022-06-02 14:20 | NUR ---
ON OR ABOUT THIS TIME CODE BLUE CALLED Yunier CORNELL RCP AND Andreina SCHUSTER RCP ATTENDING Addendum: 06/02/22 at 1836 by Skyler Cornell RT CPR
[2022-06-02] MEDS ORDERED: PROPOFOL 1000 MG/100 ML PREMIX 100 ML IV ONE (14:25)
--- NOTE | 2022-06-02 14:27 | NUR ---
INTUBATION; SEE ENTRY AT 184
--- NOTE | 2022-06-02 14:43 | NUR ---
CXR COMPLETED; ENDOTRACHEAL TUBE 2.2cm ABOVE CESAR
[2022-06-02] MEDS ORDERED: NOREPINEPHRINE 16 MG in DEXTROSE 5% 250 ML IV PRN (15:05)
[2022-06-02] MEDS ORDERED: DILTIAZEM 25 MG/5 ML VIAL IVP SCH (15:45)
[2022-06-02] MEDS ORDERED: DILTIAZEM 125 MG in DEXTROSE 5% 100 ML IV SCH (15:45)
[2022-06-02] MEDS ORDERED: VASOPRESSIN 20 UNITS/ML VIAL ONE (16:14)
[2022-06-02] MEDS ORDERED: VASOPRESSIN 20 UNITS in NACL 0.9% 250 ML IV SCH (16:15)
[2022-06-02] MEDS ORDERED: PHENYLEPHRINE 10 MG in NACL 0.9% 250 ML IV PRN (16:15)
--- NOTE | 2022-06-02 16:25 | NUR ---
SECONDS CODE BLUE CALLED AUBREY HOLLISP AND AUBREY DIASP ATTENDING; CPR
--- NOTE | 2022-06-02 16:38 | NUR ---
ROSC ACHIEVED PLACED BACK ON VENTILATOR SUPPORT; REVIEWED BLOOD PRESSURE 125/85; INCREASE PEEP TO [id number] TO MAINTAIN SATURATION GREATER THAN 92%
[2022-06-02] MEDS ORDERED: EPINEPHrine 1 mg/mL 5 MG in DEXTROSE 5% 250 ML IV PRN (16:40)
--- NOTE | 2022-06-02 16:53 | NUR ---
06/02/22 RD FOLLOW UP COMPLETED PLEASE REFER TO NUTRITION ASSESSMENT UNDER CARE ACTIVITY FOR ESTIMATED NUTRITIONAL NEEDS. 1. CONTINUE CARDIAC DIET TOLERATED 2. MONITOR PO INTAKE, GI SYMPTOMS, AND NUTRITION RELATED LAB VALUES 3. RD TO FOLLOW-UP 2-3 DAYS, HIGH RISK REVIEWED BY EDELMIRA VELAZQUEZ RD
--- NOTE | 2022-06-02 17:37 | NUR ---
PATIENT CODED 1500 AND WAS INTUBATED. POSSIBLE ASPIRATION OF GASTRIC JUICES AND/OR BLOOD. POST INTUBATION SUCTION THROUGH ET TUBE AND REMOVED COPIOUS AMOUNT OF BROWN/BLOODY SECRETION. LARGE AMOUNT OF BLOOD SUCTIONED FROM MOUTH. PT STABLE BUT WILL CONTINUE TO MONITOR.
--- NOTE | 2022-06-02 17:41 | NUR ---
PT CODED AT 1700 AGAIN, ROSC WAS OBTAINED. ABG DONE PER SR LANDA. pH 6.89, pCO2 75.9, Po2 84.9, HCO3- 14.2, BE -19.5. CALLED DR. ARCOS WHO ASKED TO MAKE CHANGES TO VENT SETTINGS. TITRATE UP rr TO 22 (FROM 18), AND INCREASE TIDAL VOLUME TO 450. PT GIVEN BICARB AND IS NOW DOING BETTER. WILL CONTINUE TO MONITOR PT CAREFULLY. ANOTHER ABG ORDERED FOR 6:30.
--- NOTE | 2022-06-02 18:45 | NUR ---
USING A GLIDESCOPE PATIENT SUCCESSFULLY INTUBATED BY DR. HENRY BRYAN WITH AN ENDOTRACHEAL TUBE #7.5 SECURED AT 22cm WITH AN ANCHOR FAST CUFF PRESSURE INFLATED WITH 8CC OF AIR VIA A 10CC SYRINGE PLACEMENT CONFIRMED VIA ETCO2 WITH COLOR CHANGE - YELLOW GOOD CHEST RISE BILATERAL AUSCULTATION ROSANGELA BRYAN CXT TO FOLLOW Addendum: 06/02/22 at 1845 by Skyler Cheng RT ACTUAL TIME [id number]
[2022-06-02] MEDS ORDERED: PHENYLEPHRINE 10 MG/ML VIAL ONE ×2 (19:20→23:12)
--- NOTE | 2022-06-02 19:32 | NUR ---
@1928 Report received from Arielle STOREY at bedside, pt coded during day shift twice as at this time pt in unresponsive eyes dilated no reaction to light size6/6 bilateral no movement in all extremities to pain and tactile stimulus. Oxygenation via ventilator a/c prvc rate 28 FIO2 50% TV 450 PEEP 14 O2 sat 97% blood pressure unobtainable in all extremities no urine via the [facility] aware of pt's critical condition and they requested if there is any code again after that there should be no more resuscitation effort after the third one pt should be made DNR and Dr Corral is aware. Maxed out on all pressors levophed @ 30mcg/min Vasopressin @0.03units/min Neosynephrine @150mcg/min, Epinhephrine @101mcg/min
--- NOTE | 2022-06-02 19:50 | NUR ---
184 ABG DRAWN AND RESULTS SENT TO DR ARCOS AND DR FORRESTER. DR ARCOS ORDERED RR TO INCREASE TO 28 AND LOWERED FIO2 TO 50%. INLINE HHNTX GIVEN
--- NOTE | 2022-06-02 20:17 | NUR ---
Updates Dr Sima Truong about pt's condition no blood presure unobtainable in all extremities also maxed out on all pressors Levophed Vasopressin Epinephrine Neosynephrine and MD said to contact [facility] [employer]
--- NOTE | 2022-06-02 21:30 | NUR ---
Updates Dr Spangler on pt's condition as at this time vent settings a.c prvc, rate 28 FIO2 50% TV 450 O2 SAT 96% maxed out on all pressors Levophed, Vasopressin, Neosynephrine Epinephrie, no blood pressure HR rate 110 to 116 on the monitor and palplable also radial, pedal, and carotid very weak as at this time no new orders received MD said just continue to monitor.
--- NOTE | 2022-06-02 22:05 | NUR ---
@2202 no pulse on the monitor nor palpable code blue called CPR started, ER TEAM with Dr BREWER responded at the bedside after 2 amps of Epinephrine pt recovered with palpable pulses code called off.
--- NOTE | 2022-06-02 22:15 | NUR ---
Dr BARTOLO LANTIGUA, Dr Spangler notified about pt's code blue events again @1228
--- NOTE | 2022-06-02 22:18 | NUR ---
pt notified about the code blue again also encouraged him and to call other family to come and see pt at the bedside so the pt is not alone.Pt's said pt does not have any family only him and her son are close family
--- NOTE | 2022-06-02 22:40 | NUR ---
PT arrived at the bedside support also education on pt's condition as at this time pt still maxed IV pressors very critical explained to him at the bedside so he verbalized understanding and he signed DNR code status so no more resuscitation efforts
--- NOTE | 2022-06-02 23:00 | NUR ---
Dr Chaney was here GI consults updates on pt's on admission and now. MD saw pt at the bedside order received to insert rectal tube to decompress large distended abdomen. MD also discuss pt's condition with pt's at the bedside
--- NOTE | 2022-06-02 23:08 | NUR ---
2200 CODE BLUE CALLED. PT BEING BAGGED AND CPR PERFORMED.ACLS DRUGS GIVEN. ROSC WAS UPTAINED AND PATIENT PLACED BACK ON VENT SAME SETTINGS
[2022-06-03] MEDS ORDERED: PHENYLEPHRINE 40 MG in NACL 0.9% 250 ML IV PRN (00:05)
--- NOTE | 2022-06-03 00:57 | NUR ---
pt @0034 Dr Gao notified
--- NOTE | 2022-06-03 00:59 | NUR ---
Pt notified but there is no mortuary place said he will call back @0600 in morning.
--- NOTE | 2022-06-03 02:19 | NUR ---
[facility] notified sooke to PRISCILA MYERS and pt qualified as a donor case # [id number]
--- NOTE | 2022-06-03 02:37 | NUR ---
Supervisor Rice Milling's office notified spoke to [employer] and body to be released to family or mortuary regarded as not a Supervisor Rice Milling's case.
--- NOTE | 2022-06-03 04:50 | NUR ---
Post Mortem care done and p's body moved to [facility] pending famiy response this morning 06/03
[2022-06-03] MEDS ORDERED: metroNIDAZOLE 500 MG/NS PREMIX 100 ML IV SCH (05:00)
--- NOTE | 2022-06-03 07:10 | NUR ---
[facility] [employer] representative called back and said pt is not suitable for donation so can be released to family and Mortuary
[2022-06-03] MEDS ORDERED: PANTOPRAZOLE 40 MG INJ VIAL IVP SCH (09:00)
== END 2022-06-03 11:45 | DRG 720 ==
LOC: MED 02:57 → MTU 06:01 → MIC 17:08 → MTU 05-24 17:50 → MIC 06-02 02:10
PROVIDERS: ADMIT Family Medicine; ATTEND Family Medicine
PROC: 5A1955Z Respiratory Ventilation, Greater than 96 Consecutive Hours (ICD-10-PCS; principal; 2022-05-18)
PROC: 02HV33Z Insertion of Infusion Device into Superior Vena Cava, Percutaneous Approach (ICD-10-PCS; 2022-05-18)
PROC: 0BH17EZ Insertion of Endotracheal Airway into Trachea, Via Natural or Artificial Opening (ICD-10-PCS; 2022-05-18)
PROC: 5A12012 Performance of Cardiac Output, Single, Manual (ICD-10-PCS; 2022-06-02)
PROC: 0BH17EZ Insertion of Endotracheal Airway into Trachea, Via Natural or Artificial Opening (ICD-10-PCS; 2022-06-02)
PROC: 5A1935Z Respiratory Ventilation, Less than 24 Consecutive Hours (ICD-10-PCS; 2022-06-02)
DX: A41.9 Sepsis, unspecified organism (principal); J96.21 Acute and chronic respiratory failure with hypoxia; N17.0 Acute kidney failure with tubular necrosis; J45.902 Unspecified asthma with status asthmaticus; J69.0 Pneumonitis due to inhalation of food and vomit; R57.9 Shock, unspecified; J44.0 Chronic obstructive pulmonary disease with (acute) lower respiratory infection; R65.21 Severe sepsis with septic shock; E83.39 Other disorders of phosphorus metabolism; E87.1 Hypo-osmolality and hyponatremia; K63.89 Other specified diseases of intestine; J44.1 Chronic obstructive pulmonary disease with (acute) exacerbation; E87.20 Acidosis, unspecified; D72.829 Elevated white blood cell count, unspecified; F17.200 Nicotine dependence, unspecified, uncomplicated; E83.42 Hypomagnesemia; Z20.822 Contact with and (suspected) exposure to COVID-19; Z88.8 Allergy status to other drugs, medicaments and biological substances; Z79.899 Other long term (current) drug therapy; Z91.199 Patient's noncompliance with other medical treatment and regimen due to unspecified reason; I46.9 Cardiac arrest, cause unspecified
CPT/HCPCS: 31500; 36415; 36556; 36600; 71045; 74018; 74150; 76700; 76770; 80048; 80053; 82272; 82803; 82948; 83735; 84100; 84484; 85025; 87070; 87081; 87205; 89220; 92526; 92950; 93005; 94002; 94003; 94640; 94660; 96372; 97116; 97163-GP; 97530; 99291; 99292; J0171; J0330; J0696; J1630; J1650; J1940; J2060; J2185; J2270; J2370; J2405; J2704; J2765; J2920; J2930; J3010; J3475; J3480; J3490; J7030; J7060; J7613; J7644; Q0092